=== PATIENT | female | born 1935 | race Caucasian/White ===

== ENCOUNTER 2022-02-22 09:34 | Inpatient (IN) | payer MEDICARE, BC ==
[~2022-02-22] VITALS: Ht 162.6 cm; Wt 54.5 kg
[2022-02-22] VITALS (10 sets, daily range): BP systolic 102–118; BP diastolic 48–61
[~2022-02-22 09:34] MED LIST: ALBU8HFA PO; AMLO10TA13 PO; HYDR25TA4 PO; IRBE150T51 PO; LEVO112T5 PO; METO-395 PO; VIT1CAPS46 PO
[2022-02-22 10:02] LABS: BASOPHILS # (AUTO) 0.1 X10'3 (0-0.2); BASOPHILS % (AUTO) 1.3 % (0-1); EOSINOPHILS # (AUTO) 0.1 X10'3 (0-0.9); EOSINOPHILS % (AUTO) 0.7 % (0-6); HEMATOCRIT 31.6 % (35.0-45.0); HEMOGLOBIN 10.2 g/dl (12.0-16.0); LYMPHOCYTES # (AUTO) 2.8 X10'3 (1.1-4.8); MEAN CORPUSCULAR HEMOGLOBIN 28.7 PG (27.0-31.0); MEAN CORPUSCULAR HGB CONC 32.4 g/dL (33.0-36.5); MEAN CORPUSCULAR VOLUME 88.5 FL (78-98); MEAN PLATELET VOLUME 7.4 FL (7.4-10.4); MONOCYTES % (AUTO) 8.9 % (2-12); NEUTROPHILS # (AUTO) 6.9 X10'3 (1.8-7.7); NEUTROPHILS % (AUTO) 63.1 % (42-75); PLATELET COUNT 504 X10'3 (140-440); RED BLOOD COUNT 3.57 X10'6 (4.20-5.60); RED CELL DISTRIBUTION WIDTH 14.8 % (11.5-14.5); WHITE BLOOD COUNT 10.9 X10'3 (4.5-11.0)
[2022-02-22 10:26] LABS: ABG BASE EXCESS -0.1 mmol/L (-2.0-2.0); ABG HCO3 33.1 mmol/L (22.0-26.0); ABG PCO2 (T) 114.8 mmHg (32.0-45.0); ALLEN'S TEST POSITIVE; FCOHb 0.3 % (0.0-3.9); FLOW 12 L/min; FMetHb 0.5 % (0.0-1.5); FO2Hb 98.2 % (94-97); PATIENT TEMPERATURE 35.4; TOTAL HEMOGLOBIN 11.3 G/dl (12.0-16.0)
[2022-02-22] MEDS: LIDOcaine 2% 10ml TOPICAL JELLY (Urojet) TP ONE ×2 (10:29→10:30)
[2022-02-22 10:34] LABS: POTASSIUM 4.7 MMOL/L (3.5-5.1)
--- NOTE | 2022-02-22 10:38 | NUR ---
dr pulliam and rt at bedside .pt needs bipap .md aware of pt vitals ,pt needs a sitter as pt is uncousiousness and require bipap.
[2022-02-22 10:45] LABS: ALANINE AMINOTRANSFERASE 16 U/L (12-78); ALBUMIN 3.1 G/DL (3.4-5.0); ALBUMIN/GLOBULIN RATIO 0.8 (1.1-1.5); ALKALINE PHOSPHATASE 66 IU/L (46-116); ANION GAP 8 (8-16); ASPARTATE AMINO TRANSFERASE 21 U/L (10-37); BILIRUBIN,TOTAL 0.3 MG/DL (0.1-1.0); BLOOD UREA NITROGEN 47 MG/DL (7-18); BUN/CREATININE RATIO 17.5 (6.6-38.0); CALCIUM 8.1 MG/DL (8.5-10.1); CHLORIDE 100 MMOL/L (99-107); CREATININE 2.68 MG/DL (0.40-0.90); GLUCOSE 248 MG/DL (70-104); MAGNESIUM 2.5 MG/DL (1.5-2.4); SODIUM 143 MMOL/L (135-145); TOTAL CARBON DIOXIDE 35.4 MMOL/L (24-32); TOTAL PROTEIN 7.1 G/DL (6.4-8.2); eGFR 17 ML/MIN
[2022-02-22 10:54] LABS: UA COLLECTION TYPE FOLEY CATH
[2022-02-22 10:55] LABS: CLARITY,URINE CLEAR (Clear); COLOR,URINE YELLOW (Yellow); GLUCOSE, URINE NEGATIVE (Neg); KETONES,URINE NEGATIVE (Neg); LEUKOCYTE ESTERASE ,URINE NEGATIVE (Neg); NITRITES, URINE NEGATIVE (Neg); OCCULT BLOOD,URINE NEGATIVE (Neg); PROTEIN,URINE NEGATIVE (Neg); UROBILINOGEN,URINE 0.2 E.U/dL (0.2-1.0)
--- NOTE | 2022-02-22 10:57 | NUR ---
rt and woodwork teacher at bedside.
[2022-02-22] MEDS ORDERED: heparin 25,000 UNIT/250ml bag 250 ML IV SCH (11:05)
[2022-02-22] MEDS ORDERED: heparin 10,000 units/1 ML INJ IV PRN (11:05)
[2022-02-22] MEDS ORDERED: heparin 10,000 units/1 ML INJ IV ONE (11:05)
--- NOTE | 2022-02-22 11:06 | NUR ---
Spoke with Dr. Vega regarding patients decreasing blood pressure of 84/41 mmHg RA, Dr. Vega stated to place verbal order for 1000 mL NS bolus once now.
[2022-02-22] MEDS ORDERED: normal saline 1000ml 1,000 ML IVB ONE (11:10)
[2022-02-22 11:11] LABS: ABG BASE EXCESS 3.4 mmol/L (-2.0-2.0); ABG PCO2 (T) 74.5 mmHg (32.0-45.0); ALLEN'S TEST POSITIVE; FCOHb 0.4 % (0.0-3.9); FMetHb 0.1 % (0.0-1.5); FO2Hb 91.5 % (94-97); PATIENT TEMPERATURE 34.3; RESPIRATORY RATE 8 b/min; TIDAL VOLUME 551 mL; TOTAL HEMOGLOBIN 10.4 G/dl (12.0-16.0)
--- NOTE | 2022-02-22 11:15 | NUR ---
CALLED PHARMACY TWICE TO VERIFY THE HEPARIN INFUSION DRIP.
--- NOTE | 2022-02-22 11:27 | NUR ---
DR CALLAHAN AWARE OF PENDING PTT HEPARIN BOLUS WAS ADMIN ,NOT STARTED THE DRIP PTT IS PENDING.
[2022-02-22 11:31] LABS: APTT 29 SECONDS (22-32)
--- NOTE | 2022-02-22 11:42 | NUR ---
HEAD LOADER AT BEDSIDE ALONG WITH DAUGHTER.
--- NOTE | 2022-02-22 11:43 | NUR ---
RE BLUE AT BEDSIDE.
--- NOTE | 2022-02-22 11:46 | NUR ---
NOTIFIED DR CALLAHAN THAT PT BP IS STILL LOW 81/40 mmHg AFTER 1L OF BOLUS IV FLUID .NO NEW ORDERS.ALSO CLARIFIED TO START THE ABX RIGHT NOW INSTEAD OF GUERDA ORDER FOR 1999. PER MD START THE IV ABX.
[2022-02-22] MEDS ORDERED: vancomycin inj. 750 MG in normal saline 250ml IV soln 250 ML IV ONE (12:36)
[2022-02-22] MEDS ORDERED: piperacillin/tazo 3.375gm/50ml 50 ML IV ONE ×2 (12:37→20:00)
[2022-02-22] MEDS ORDERED: magnesium hydroxide 30ml (MOM) UD suspension PO PRN (12:50)
[2022-02-22] MEDS ORDERED: morphine 2 MG/ML inj. syringe IV PRN (12:50)
[2022-02-22] MEDS ORDERED: acetaminophen 325mg tablet PO PRN ×2 (12:50)
[2022-02-22] MEDS ORDERED: POTASSIUM BICARB 20meq eff tab 20 MEQ TABLET.EFF PO PRN (12:50)
[2022-02-22] MEDS ORDERED: morphine 4 MG/ML inj SYRINge IV PRN (12:50)
[2022-02-22] MEDS ORDERED: normal saline 1000ml 1,000 ML IV SCH (12:50)
[2022-02-22] MEDS ORDERED: ondansetron/PF 4mg/2ml inj IV PRN (12:50)
--- NOTE | 2022-02-22 14:20 | NUR ---
Pt temp upon arrival to unit is 35.0 Celcius. Meli hugger applied.
--- NOTE | 2022-02-22 14:20 | NUR ---
Patient arrived via gurney in room CICU 2012. I have received report from JENNIFER Elise RN and had the opportunity to ask questions and assume patient care.
--- NOTE | 2022-02-22 18:20 | NUR ---
Patient in room CICU 2013. I have received report from Annie RN and Krystian RN and had the opportunity to ask questions and assume patient care.
--- NOTE | 2022-02-22 18:21 | NUR ---
Problems reprioritized. Patient report given, questions answered & plan of care reviewed with SOPHIE Ponce.
--- NOTE | 2022-02-22 18:44 | NUR ---
Patient is awake and oriented to person, place. She relates that last she knew she was unable to finish her dinner at [facility], and then had request a "sleeping pill" because she relates she was unable to sleep for over a week. She was unable to tolerate the BiPap mask being off for oral care. Patient speaking appropriately at this time. SpO2 decreased to 83% with respiratory rate in the high 20's. Bi Pap mask placed back on patient with increased in oxygen saturation slowly to 100%. Patient educated on purpose of mask and why it needed to remain in place.
--- NOTE | 2022-02-22 21:30 | NUR ---
Patient with increased work of breathing, respiratory rate 36, SpO2 92%. Patient seated in high fowlers with two pillows in place behind back. Patient agreed to place Bi Pap back on. Patient with slight decreased in respiratory rate to high 20's, increased in oxygen saturation to 98%.
--- NOTE | 2022-02-22 22:00 | NUR ---
Patient c/o ear pain with BiPap mask. straps adjusted without relief. Patient becoming anxious. Mask removed and patient placed back on nasal cannula at 2 lpm. Respiratory rate 33, oxygen saturation 99%.
--- NOTE | 2022-02-22 23:00 | NUR ---
Patients son Scott called to check on his mother. He is currently in [place] waiting on connecting flight to [place]. He was able to speak to his mother. Phone number: Country code; [phone]
--- NOTE | 2022-02-22 23:50 | NUR ---
Patient fatigued and states "I'm tired" Patient relates that she has not slept well for weeks. Patient appears to be dozing on and off. Patient awakens easily from sleep and is appropriate with her mentation. Patient states "its hard to breathe". No change in lung sounds noted. course bilateral bases. clear to the upper lobes bilaterally. Patient placed back on Bi PAP mask at 45 % FiO2.
[2022-02-23] VITALS (25 sets, daily range): BP systolic 100–127; BP diastolic 39–61
--- NOTE | 2022-02-23 | NUR ---
Dr. Wilson called, voicemail left for return call. Re: Decreased urine output.
--- NOTE | 2022-02-23 00:30 | NUR ---
Dr. Wilson phone call: Re decreased urine output, patients anxiety and inability to wear BiPap mask. Lab results reviewed, current vital signs and patients status reviewed with MD. Verbal telephone order for: 1. Hold IV fluids for now 2. Consult Dr. Raphael in nephrology 3. 12.5 mg Benadryl IV once now 4. 60 mg Lasix IV once now.
[2022-02-23] MEDS ORDERED: diphenhydrAMINE 50 mg/ml inj IM ONE (00:35)
[2022-02-23] MEDS ORDERED: furosemide 40mg/4ml inj IV ONE (00:35)
[2022-02-23] MEDS ORDERED: diphenhydrAMINE 50 mg/ml inj IV ONE (01:25)
[2022-02-23] MEDS: piperacillin/tazo 3.375gm/50ml 50 ML IV SCH ×2 (01:40→13:05)
[2022-02-23 02:35] LABS: BASOPHILS % (AUTO) 0.1 % (0-1); EOSINOPHILS % (AUTO) 0 % (0-6); HEMATOCRIT 28.9 % (35.0-45.0); HEMOGLOBIN 9.4 g/dl (12.0-16.0); LYMPHOCYTES # (AUTO) 0.2 X10'3 (1.1-4.8); LYMPHOCYTES % (AUTO) 1.6 % (21-51); MEAN CORPUSCULAR HEMOGLOBIN 28.6 PG (27.0-31.0); MEAN CORPUSCULAR HGB CONC 32.7 g/dL (33.0-36.5); MEAN CORPUSCULAR VOLUME 87.6 FL (78-98); MONOCYTES # (AUTO) 0.8 X10'3 (0-0.9); MONOCYTES % (AUTO) 6.5 % (2-12); NEUTROPHILS # (AUTO) 11.3 X10'3 (1.8-7.7); NEUTROPHILS % (AUTO) 91.8 % (42-75); PLATELET COUNT 354 X10'3 (140-440); RED CELL DISTRIBUTION WIDTH 14.4 % (11.5-14.5); WHITE BLOOD COUNT 12.3 X10'3 (4.5-11.0)
[2022-02-23] MEDS: VANCOMYCIN LEVEL IV SCH (02:37)
[2022-02-23 02:47] LABS: ALANINE AMINOTRANSFERASE 17 U/L (12-78); ALBUMIN 2.8 G/DL (3.4-5.0); ALBUMIN/GLOBULIN RATIO 0.8 (1.1-1.5); ALKALINE PHOSPHATASE 66 IU/L (46-116); ANION GAP 7 (8-16); ASPARTATE AMINO TRANSFERASE 19 U/L (10-37); BILIRUBIN,TOTAL 0.3 MG/DL (0.1-1.0); BLOOD UREA NITROGEN 51 MG/DL (7-18); BUN/CREATININE RATIO 19.8 (6.6-38.0); CALCIUM 7.6 MG/DL (8.5-10.1); CHLORIDE 103 MMOL/L (99-107); CREATININE 2.58 MG/DL (0.40-0.90); GLUCOSE 129 MG/DL (70-104); MAGNESIUM 2.1 MG/DL (1.5-2.4); POTASSIUM 4.7 MMOL/L (3.5-5.1); SODIUM 144 MMOL/L (135-145); TOTAL CARBON DIOXIDE 34.4 MMOL/L (24-32); TOTAL PROTEIN 6.5 G/DL (6.4-8.2); VANCOMYCIN,RANDOM 8.2 UG/ML; eGFR 18 ML/MIN
--- NOTE | 2022-02-23 04:05 | NUR ---
Patient appeared to have slept from 0030 to 0400. Patient was able to wear BiPAP mask while sleeping. Patient states " I felt like I slept!" BiPap mask removed and oral care, chapstick and ice chips provided for patient. Patient placed on nasal cannula at 3 lpm during break from BiPAP mask. Patients cardiac rhythm is back in atrial fibrillation rate 105-120, BP MAP >70.
--- NOTE | 2022-02-23 04:36 | NUR ---
Bi PAP mask placed back on patient secondary to increased respiratory rate.
--- NOTE | 2022-02-23 06:26 | NUR ---
Problems reprioritized. Patient report given, questions answered & plan of care reviewed with SOPHIE Horton.
[2022-02-23] MEDS ORDERED: APIX2.5T PO (07:58)
[2022-02-23] MEDS: K and/or MAG REPLACEMENT MC SCH (08:00)
[2022-02-23] MEDS ORDERED: vancomycin/NS 1 GM ADD-VANTAGE 250 ML IV PRN (08:00)
[2022-02-23] MEDS ORDERED: albuterol 2.5 MG/3 ML nebule NEB PRN (09:10)
[2022-02-23 09:49] LABS: ABG OXYGEN SATURATION 94.8 % (94-97); ABG PCO2 (T) 61.6 mmHg (32.0-45.0); ABG PO2 (T) 77.6 mmHg (75.0-100.0); ALLEN'S TEST POSITIVE; FCOHb 0.3 % (0.0-3.9); FLOW 2 L/min; FMetHb 0.3 % (0.0-1.5); FO2Hb 94.2 % (94-97); PATIENT TEMPERATURE 37.3; TOTAL HEMOGLOBIN 10.5 G/dl (12.0-16.0)
[2022-02-23] MEDS ORDERED: metoprolol succinate 25mg (24-HOUR) SR. Tablet PO ONE (10:25)
[2022-02-23] MEDS ORDERED: vancomycin/NS 1 GM ADD-VANTAGE 250 ML IV ONE (10:30)
--- NOTE | 2022-02-23 10:56 | NUR ---
Noted pt BMI 20.6 low given age. Pt stable wt hx recent admits and reports no wt loss per RN Malnutrition Screen per EMR; likely maintains stable underweight status given age. Pt advanced to Na-restricted diet pending CORPORATE CLAIMS EXAMINER BSS given recent prior admit on EC7 per CORPORATE CLAIMS EXAMINER. Will monitor for nutrition intervention needs this admit. Addendum: 02/23/22 at [address] Amended: Links added.
--- NOTE | 2022-02-23 14:55 | NUR ---
Patient report given to Julia Rosa RN with all questions answered.
--- NOTE | 2022-02-23 17:42 | NUR ---
Pt tx to 3015b reported off to Diane
--- NOTE | 2022-02-23 17:52 | NUR ---
Received patient from CICU patient appears comfortable orientated to room. No c/o pain.VSS
--- NOTE | 2022-02-23 18:40 | NUR ---
Bandaide to left upper flank CDI from thoracentesis. per report 700mls removed. patient appears alert and orientated. Report given to Concha BARRIOS
--- NOTE | 2022-02-23 18:56 | NUR ---
Patient in room U 3018O. I have received report from Kirsten BARRIOS and had the opportunity to ask questions and assume patient care. Pt is sitting up in bed. no s/s of distress, no c/o pain. BLL, call light within reach, frequently used items in reach, frequent rounding. Will continue to monitior.
[2022-02-23] MEDS ORDERED: non-formulary drug (Vit C/E/Zn/Coppr/Lutein/Zeaxan (Preservision Areds 2 Softgel) 1 CAP) PO SCH (20:00)
[2022-02-23] MEDS: losartan 50mg tablet PO SCH (21:26)
[2022-02-24 02:00] VITALS: BP 129/62
--- NOTE | 2022-02-24 02:16 | NUR ---
Received Pts Zoltan from Pharmacy @0210.
[2022-02-24] MEDS: piperacillin/tazo 3.375gm/50ml 50 ML IV SCH ×2 (02:19→13:23)
[2022-02-24 06:00] VITALS: BP 113/52
--- NOTE | 2022-02-24 06:19 | NUR ---
Problems reprioritized. Patient report given, questions answered & plan of care reviewed with Agustín BARRIOS.
[2022-02-24] MEDS: VANCOMYCIN LEVEL IV SCH (06:51)
[2022-02-24 06:56] LABS: BASOPHILS % (AUTO) 0.3 % (0-1); EOSINOPHILS % (AUTO) 0.1 % (0-6); HEMATOCRIT 27.9 % (35.0-45.0); HEMOGLOBIN 9.1 g/dl (12.0-16.0); LYMPHOCYTES # (AUTO) 0.7 X10'3 (1.1-4.8); LYMPHOCYTES % (AUTO) 6.4 % (21-51); MEAN CORPUSCULAR HGB CONC 32.8 g/dL (33.0-36.5); MEAN CORPUSCULAR VOLUME 85.5 FL (78-98); MEAN PLATELET VOLUME 7.6 FL (7.4-10.4); MONOCYTES # (AUTO) 1.1 X10'3 (0-0.9); MONOCYTES % (AUTO) 10.9 % (2-12); NEUTROPHILS # (AUTO) 8.3 X10'3 (1.8-7.7); NEUTROPHILS % (AUTO) 82.3 % (42-75); PLATELET COUNT 299 X10'3 (140-440); RED BLOOD COUNT 3.26 X10'6 (4.20-5.60); RED CELL DISTRIBUTION WIDTH 14.3 % (11.5-14.5); WHITE BLOOD COUNT 10.1 X10'3 (4.5-11.0)
[2022-02-24 07:22] LABS: ALANINE AMINOTRANSFERASE 16 U/L (12-78); ALBUMIN 2.6 G/DL (3.4-5.0); ALBUMIN/GLOBULIN RATIO 0.7 (1.1-1.5); ALKALINE PHOSPHATASE 57 IU/L (46-116); ANION GAP 3 (8-16); ASPARTATE AMINO TRANSFERASE 20 U/L (10-37); BILIRUBIN,TOTAL 0.5 MG/DL (0.1-1.0); BLOOD UREA NITROGEN 52 MG/DL (7-18); BUN/CREATININE RATIO 19.2 (6.6-38.0); CALCIUM 7.8 MG/DL (8.5-10.1); CHLORIDE 103 MMOL/L (99-107); CREATININE 2.71 MG/DL (0.40-0.90); GLUCOSE 113 MG/DL (70-104); MAGNESIUM 2.1 MG/DL (1.5-2.4); POTASSIUM 3.5 MMOL/L (3.5-5.1); SODIUM 142 MMOL/L (135-145); TOTAL CARBON DIOXIDE 35.8 MMOL/L (24-32); TOTAL PROTEIN 6.2 G/DL (6.4-8.2); VANCOMYCIN,RANDOM 17.3 UG/ML; eGFR 17 ML/MIN
[2022-02-24] MEDS: K and/or MAG REPLACEMENT MC SCH (07:38)
[2022-02-24] MEDS: metoprolol succinate 25mg (24-HOUR) SR. Tablet PO SCH (07:39)
[2022-02-24] MEDS: levoTHYROXINE 112mcg tablet PO SCH (07:39)
[2022-02-24] MEDS ORDERED: amLODIPine 5mg tablet PO SCH (08:00)
[2022-02-24 15:00] VITALS: BP 107/46
[2022-02-24 18:30] VITALS: BP 97/50
--- NOTE | 2022-02-24 18:31 | NUR ---
Patient in room PCU 3012. I have received report from Agustín BARRIOS and had the opportunity to ask questions and assume patient care.
[2022-02-24] MEDS: losartan 50mg tablet PO SCH (21:15)
[2022-02-24 22:00] VITALS: BP 114/56
[2022-02-25] MEDS: piperacillin/tazo 3.375gm/50ml 50 ML IV SCH ×2 (01:24→13:00)
[2022-02-25 02:01] VITALS: BP 117/57
[2022-02-25] MEDS: VANCOMYCIN LEVEL IV SCH (03:00)
[2022-02-25 06:00] VITALS: BP 110/55
--- NOTE | 2022-02-25 06:18 | NUR ---
Problems reprioritized. Patient report given, questions answered & plan of care reviewed with Agustín BARRIOS.
[2022-02-25 07:07] LABS: BASOPHILS % (AUTO) 0.5 % (0-1); EOSINOPHILS # (AUTO) 0.1 X10'3 (0-0.9); EOSINOPHILS % (AUTO) 0.6 % (0-6); HEMATOCRIT 27.8 % (35.0-45.0); HEMOGLOBIN 9.2 g/dl (12.0-16.0); LYMPHOCYTES # (AUTO) 0.9 X10'3 (1.1-4.8); LYMPHOCYTES % (AUTO) 10.7 % (21-51); MEAN CORPUSCULAR HEMOGLOBIN 28.7 PG (27.0-31.0); MEAN CORPUSCULAR HGB CONC 32.9 g/dL (33.0-36.5); MEAN CORPUSCULAR VOLUME 87.1 FL (78-98); MEAN PLATELET VOLUME 7.7 FL (7.4-10.4); MONOCYTES # (AUTO) 1.2 X10'3 (0-0.9); MONOCYTES % (AUTO) 13.5 % (2-12); NEUTROPHILS # (AUTO) 6.6 X10'3 (1.8-7.7); NEUTROPHILS % (AUTO) 74.7 % (42-75); PLATELET COUNT 307 X10'3 (140-440); RED BLOOD COUNT 3.19 X10'6 (4.20-5.60); RED CELL DISTRIBUTION WIDTH 14.3 % (11.5-14.5); WHITE BLOOD COUNT 8.8 X10'3 (4.5-11.0)
[2022-02-25 07:14] LABS: ALANINE AMINOTRANSFERASE 15 U/L (12-78); ALBUMIN 2.6 G/DL (3.4-5.0); ALBUMIN/GLOBULIN RATIO 0.7 (1.1-1.5); ALKALINE PHOSPHATASE 54 IU/L (46-116); ANION GAP 2 (8-16); ASPARTATE AMINO TRANSFERASE 17 U/L (10-37); BILIRUBIN,TOTAL 0.4 MG/DL (0.1-1.0); BLOOD UREA NITROGEN 49 MG/DL (7-18); BUN/CREATININE RATIO 19.4 (6.6-38.0); CALCIUM 7.9 MG/DL (8.5-10.1); CHLORIDE 104 MMOL/L (99-107); CREATININE 2.52 MG/DL (0.40-0.90); GLUCOSE 117 MG/DL (70-104); MAGNESIUM 2.3 MG/DL (1.5-2.4); POTASSIUM 3.3 MMOL/L (3.5-5.1); SODIUM 144 MMOL/L (135-145); TOTAL CARBON DIOXIDE 38.2 MMOL/L (24-32); TOTAL PROTEIN 6.2 G/DL (6.4-8.2); VANCOMYCIN,RANDOM 12.8 UG/ML; eGFR 18 ML/MIN
[2022-02-25] MEDS: metoprolol succinate 25mg (24-HOUR) SR. Tablet PO SCH (07:26)
[2022-02-25] MEDS: levoTHYROXINE 112mcg tablet PO SCH (07:26)
[2022-02-25] MEDS: K and/or MAG REPLACEMENT MC SCH (08:00)
[2022-02-25 08:01] LABS: ABG BASE EXCESS 8.3 mmol/L (-2.0-2.0); ABG HCO3 34.2 mmol/L (22.0-26.0); ABG OXYGEN SATURATION 94.4 % (94-97); ABG PCO2 (T) 54.4 mmHg (32.0-45.0); ABG PO2 (T) 76.1 mmHg (75.0-100.0); ALLEN'S TEST POSITIVE; FCOHb 0.3 % (0.0-3.9); FMetHb 0.2 % (0.0-1.5); FO2Hb 93.9 % (94-97); TOTAL HEMOGLOBIN 10.3 G/dl (12.0-16.0)
[2022-02-25 11:00] VITALS: BP_SYST 112; BP_SYST 145; BP_DIAS 58; BP_DIAS 65
[2022-02-25] MEDS ORDERED: vancomycin/NS 1 GM ADD-VANTAGE 250 ML IV ONE (12:30)
[2022-02-25 15:00] VITALS: BP 108/46
--- NOTE | 2022-02-25 15:52 | NUR ---
Page Sent promotional table spacer PAGER ID: [phone] MESSAGE: KENNY OLSON RM [id number] SON AT BEDSIDE WOULD LIKE CT CHEST RESULTS THANK YOU, FALLON BARRIOS
[2022-02-25 18:00] VITALS: BP 128/54
[2022-02-25] MEDS: POTASSIUM BICARB 20meq eff tab 20 MEQ TABLET.EFF PO PRN (21:03)
[2022-02-25] MEDS: losartan 50mg tablet PO SCH (21:05)
[2022-02-25 22:00] VITALS: BP 144/41
[2022-02-26] VITALS (7 sets, daily range): BP systolic 111–157; BP diastolic 54–85
[2022-02-26] MEDS: piperacillin/tazo 3.375gm/50ml 50 ML IV SCH ×2 (01:44→13:48)
[2022-02-26] MEDS: POTASSIUM BICARB 20meq eff tab 20 MEQ TABLET.EFF PO PRN (01:53)
[2022-02-26] MEDS: VANCOMYCIN LEVEL IV SCH (03:00)
--- NOTE | 2022-02-26 06:19 | NUR ---
Problems reprioritized. Patient report given, questions answered & plan of care reviewed with maryanne BARRIOS.
[2022-02-26 08:08] LABS: ALANINE AMINOTRANSFERASE 13 U/L (12-78); ALBUMIN 2.8 G/DL (3.4-5.0); ALBUMIN/GLOBULIN RATIO 0.7 (1.1-1.5); ALKALINE PHOSPHATASE 60 IU/L (46-116); ANION GAP 5 (8-16); ASPARTATE AMINO TRANSFERASE 19 U/L (10-37); BILIRUBIN,TOTAL 0.5 MG/DL (0.1-1.0); BLOOD UREA NITROGEN 45 MG/DL (7-18); BUN/CREATININE RATIO 19.4 (6.6-38.0); CALCIUM 8.3 MG/DL (8.5-10.1); CHLORIDE 102 MMOL/L (99-107); CREATININE 2.32 MG/DL (0.40-0.90); GLUCOSE 112 MG/DL (70-104); MAGNESIUM 2.4 MG/DL (1.5-2.4); POTASSIUM 4.2 MMOL/L (3.5-5.1); SODIUM 143 MMOL/L (135-145); TOTAL PROTEIN 6.7 G/DL (6.4-8.2); VANCOMYCIN,RANDOM 20.6 UG/ML; eGFR 20 ML/MIN
[2022-02-26 08:10] LABS: BASOPHILS % (AUTO) 0.4 % (0-1); EOSINOPHILS % (AUTO) 0.4 % (0-6); HEMATOCRIT 28.7 % (35.0-45.0); HEMOGLOBIN 9.2 g/dl (12.0-16.0); LYMPHOCYTES # (AUTO) 1.1 X10'3 (1.1-4.8); LYMPHOCYTES % (AUTO) 11.8 % (21-51); MEAN CORPUSCULAR HEMOGLOBIN 27.9 PG (27.0-31.0); MEAN CORPUSCULAR HGB CONC 32.1 g/dL (33.0-36.5); MEAN CORPUSCULAR VOLUME 86.7 FL (78-98); MEAN PLATELET VOLUME 7.8 FL (7.4-10.4); MONOCYTES # (AUTO) 1.2 X10'3 (0-0.9); MONOCYTES % (AUTO) 12.3 % (2-12); NEUTROPHILS # (AUTO) 7.3 X10'3 (1.8-7.7); NEUTROPHILS % (AUTO) 75.1 % (42-75); PLATELET COUNT 318 X10'3 (140-440); RED BLOOD COUNT 3.32 X10'6 (4.20-5.60); RED CELL DISTRIBUTION WIDTH 14.5 % (11.5-14.5); WHITE BLOOD COUNT 9.8 X10'3 (4.5-11.0)
[2022-02-26] MEDS: levoTHYROXINE 112mcg tablet PO SCH (08:41)
[2022-02-26] MEDS: metoprolol succinate 25mg (24-HOUR) SR. Tablet PO SCH (08:41)
--- NOTE | 2022-02-26 09:22 | NUR ---
Initial: Pt admitted w/ acute respiratory failure, L pleural effusion, possible PNA, and KAM/CKD per EMR. Currently on MM5/2gNa diet per CEMETERY MANAGER/MD recs, w/ avg intake 47% x 8 meals partially meeting needs. Recommend Changing to Vegetarian diet as that is pt's preference. Previous food preferences have also been d/w dietary. LBM 02/24. Will continue to monitor. Recs: 1. Continue MM5 per CEMETERY MANAGER recs, change to Vegetarian diet per pt preference 2. [place] food preferences: yogurt BIDBD, chocolate shake and toast WB, cottage cheese WL, prefers sandwiches and salads; no eggs to eat, milk to drink, or bananas; pt dislikes Ensure 3. Consider supplemental NGTF given inadequate PO intake throughout previous admit if within POC 4. routine bowel care 5. Weekly wts Addendum: 02/26/22 at [address] Amended: Links added.
--- NOTE | 2022-02-26 18:42 | NUR ---
Report given to Vik BARRIOS, patient ate dinner, resting comfortably at this time.
[2022-02-26] MEDS: losartan 50mg tablet PO SCH (21:00)
[2022-02-27] MEDS: piperacillin/tazo 3.375gm/50ml 50 ML IV SCH ×2 (00:45→13:32)
[2022-02-27 02:00] VITALS: BP 132/60
[2022-02-27] MEDS: VANCOMYCIN LEVEL IV SCH (03:00)
--- NOTE | 2022-02-27 06:32 | NUR ---
Patient in room PCU 3012. I have received report from Vik BARRIOS and had the opportunity to ask questions and assume patient care.
--- NOTE | 2022-02-27 06:49 | NUR ---
Problems reprioritized. Patient report given, questions answered & plan of care reviewed with EMILIANO. Addendum: 02/27/22 at 0649 by Demetris Carlson RN Amended: Links added.
[2022-02-27 07:00] VITALS: BP 128/56
[2022-02-27 07:20] LABS: BASOPHILS # (AUTO) 0.1 X10'3 (0-0.2); BASOPHILS % (AUTO) 0.6 % (0-1); EOSINOPHILS % (AUTO) 0.1 % (0-6); HEMATOCRIT 30.6 % (35.0-45.0); LYMPHOCYTES # (AUTO) 0.8 X10'3 (1.1-4.8); LYMPHOCYTES % (AUTO) 8.2 % (21-51); MEAN CORPUSCULAR HEMOGLOBIN 28.8 PG (27.0-31.0); MEAN CORPUSCULAR HGB CONC 32.7 g/dL (33.0-36.5); MEAN CORPUSCULAR VOLUME 88.2 FL (78-98); MEAN PLATELET VOLUME 7.5 FL (7.4-10.4); MONOCYTES # (AUTO) 1.2 X10'3 (0-0.9); MONOCYTES % (AUTO) 11.8 % (2-12); NEUTROPHILS # (AUTO) 7.8 X10'3 (1.8-7.7); NEUTROPHILS % (AUTO) 79.3 % (42-75); PLATELET COUNT 335 X10'3 (140-440); RED BLOOD COUNT 3.47 X10'6 (4.20-5.60); RED CELL DISTRIBUTION WIDTH 14.6 % (11.5-14.5); WHITE BLOOD COUNT 9.9 X10'3 (4.5-11.0)
[2022-02-27 07:41] LABS: ALANINE AMINOTRANSFERASE 15 U/L (12-78); ALBUMIN/GLOBULIN RATIO 0.8 (1.1-1.5); ALKALINE PHOSPHATASE 68 IU/L (46-116); ANION GAP 2 (8-16); ASPARTATE AMINO TRANSFERASE 21 U/L (10-37); BILIRUBIN,TOTAL 0.5 MG/DL (0.1-1.0); BLOOD UREA NITROGEN 43 MG/DL (7-18); BUN/CREATININE RATIO 19.4 (6.6-38.0); CALCIUM 8.7 MG/DL (8.5-10.1); CHLORIDE 103 MMOL/L (99-107); CREATININE 2.22 MG/DL (0.40-0.90); GLUCOSE 121 MG/DL (70-104); MAGNESIUM 2.5 MG/DL (1.5-2.4); POTASSIUM 4.2 MMOL/L (3.5-5.1); SODIUM 143 MMOL/L (135-145); VANCOMYCIN,RANDOM 16.8 UG/ML; eGFR 21 ML/MIN
[2022-02-27] MEDS: levoTHYROXINE 112mcg tablet PO SCH (08:26)
[2022-02-27] MEDS: metoprolol succinate 25mg (24-HOUR) SR. Tablet PO SCH (08:26)
[2022-02-27 11:10] VITALS: BP 126/58
--- NOTE | 2022-02-27 11:57 | NUR ---
patient appears stable up sitting in chair. To work with PT this am
[2022-02-27 15:00] VITALS: BP 109/45
[2022-02-27 18:00] VITALS: BP 124/66
--- NOTE | 2022-02-27 18:20 | NUR ---
patient very pleasant. Son Jose into see patient. Able to ambulate with PT see note. No c/o pain up sitting in chair. Is for PICC placement in am. Consent is signed in chart per Dr Zhao. Report given to gian BARRIOS
[2022-02-27] MEDS: losartan 50mg tablet PO SCH (20:17)
[2022-02-27 22:00] VITALS: BP 116/56
[2022-02-28] MEDS: piperacillin/tazo 3.375gm/50ml 50 ML IV SCH ×2 (00:27→13:43)
[2022-02-28] MEDS: VANCOMYCIN LEVEL IV SCH (03:00)
[2022-02-28 06:00] VITALS: BP 138/71
--- NOTE | 2022-02-28 06:20 | NUR ---
Problems reprioritized. Patient report given, questions answered & plan of care reviewed with XUAN. Addendum: 02/28/22 at 0620 by Demetris Carlson RN Amended: Links added.
--- NOTE | 2022-02-28 06:28 | NUR ---
Problems reprioritized. Patient report given, questions answered & plan of care reviewed with XUAN. Addendum: 02/28/22 at 0629 by Demetris Carlson RN Amended: Links added.
--- NOTE | 2022-02-28 06:29 | NUR ---
Problems reprioritized. Patient report given, questions answered & plan of care reviewed with XUAN. Addendum: 02/28/22 at 0630 by Demetris Carlson RN Amended: Links added.
[2022-02-28 08:26] LABS: ALANINE AMINOTRANSFERASE 15 U/L (12-78); ALBUMIN 2.8 G/DL (3.4-5.0); ALBUMIN/GLOBULIN RATIO 0.7 (1.1-1.5); ALKALINE PHOSPHATASE 63 IU/L (46-116); ANION GAP 3 (8-16); ASPARTATE AMINO TRANSFERASE 19 U/L (10-37); BILIRUBIN,TOTAL 0.5 MG/DL (0.1-1.0); BLOOD UREA NITROGEN 40 MG/DL (7-18); BUN/CREATININE RATIO 19.4 (6.6-38.0); CALCIUM 8.7 MG/DL (8.5-10.1); CHLORIDE 103 MMOL/L (99-107); CREATININE 2.06 MG/DL (0.40-0.90); GLUCOSE 102 MG/DL (70-104); POTASSIUM 4.4 MMOL/L (3.5-5.1); SODIUM 144 MMOL/L (135-145); TOTAL CARBON DIOXIDE 38.5 MMOL/L (24-32); TOTAL PROTEIN 6.6 G/DL (6.4-8.2); VANCOMYCIN,RANDOM 12.6 UG/ML; eGFR 23 ML/MIN
[2022-02-28] MEDS: levoTHYROXINE 112mcg tablet PO SCH (09:06)
--- NOTE | 2022-02-28 09:15 | NUR ---
Paged PICC Nurse PCU Hai BARRIOS [phone] RE: Zhanna Akins. Pt has order for PICC placement today, consent form in the chart. Possibly going to today
[2022-02-28 11:00] VITALS: BP 117/56
[2022-02-28] MEDS: metoprolol succinate 25mg (24-HOUR) SR. Tablet PO SCH (11:08)
--- NOTE | 2022-02-28 11:12 | NUR ---
Paged Dr. Barfield [facility] Hai RN ext [phone] RE: Zhanna Angela. Patient's son would like to speak to you about patient condition when you get a chance. Scott [phone]
[2022-02-28] MEDS ORDERED: AZIT500T9 PO (12:34)
--- NOTE | 2022-02-28 12:55 | NUR ---
Paged PICC nurse PCU Meredith ext [phone] RE: Zhanna Lazo. Just want to follow up the PICC insertion today. lottery office manager wants to know too
--- NOTE | 2022-02-28 13:32 | NUR ---
Per Vera, Communications Operator she spoke to Dr. Barfield today and that we do not need to do the PICC line insertion today as patient will be discharging to [facility] today on PO antibiotic.
--- NOTE | 2022-02-28 15:02 | NUR ---
Paged Dr. Barfield [facility] dimitrios RN [phone] RE: Zhanna Garcia. Patient's son here has question about the diagnosis and the reason for the antibiotic treatment. Please call him Scott- son [phone]
--- NOTE | 2022-02-28 15:20 | NUR ---
Report given to ERA Cummings at [facility]. Son was aware of the transfer to [facility] Addendum: 02/28/22 at 1522 by Hai Neil RN Patient has robe with her when she left. Peripheral IV catheter removed, tip intact.
== END 2022-02-28 15:14 | DRG 193 ==
LOC: ER 09:34 → ED HOLD 13:01 → CICU 2S 14:15 → PCU 3S 02-23 18:11
PROVIDERS: ADMIT Internal Medicine Critical Care Medicine; ATTEND Internal Medicine Critical Care Medicine
PROC: 5A09357 Assistance with Respiratory Ventilation, Less than 24 Consecutive Hours, Continuous Positive Airway Pressure (ICD-10-PCS; principal; 2022-02-22)
PROC: 02HV33Z Insertion of Infusion Device into Superior Vena Cava, Percutaneous Approach (ICD-10-PCS; 2022-02-22)
PROC: B548ZZA Ultrasonography of Superior Vena Cava, Guidance (ICD-10-PCS; 2022-02-22)
PROC: 5A09357 Assistance with Respiratory Ventilation, Less than 24 Consecutive Hours, Continuous Positive Airway Pressure (ICD-10-PCS; 2022-02-23)
PROC: 0W9B3ZX Drainage of Left Pleural Cavity, Percutaneous Approach, Diagnostic (ICD-10-PCS; 2022-02-23)
DX: J18.9 Pneumonia, unspecified organism (principal); G93.41 Metabolic encephalopathy; J96.02 Acute respiratory failure with hypercapnia; I50.33 Acute on chronic diastolic (congestive) heart failure; J96.01 Acute respiratory failure with hypoxia; N17.0 Acute kidney failure with tubular necrosis; I13.0 Hypertensive heart and chronic kidney disease with heart failure and stage 1 through stage 4 chronic kidney disease, or unspecified chronic kidney disease; J91.8 Pleural effusion in other conditions classified elsewhere; E87.4 Mixed disorder of acid-base balance; I48.20 Chronic atrial fibrillation, unspecified; I95.9 Hypotension, unspecified; D64.9 Anemia, unspecified; R68.0 Hypothermia, not associated with low environmental temperature; E89.0 Postprocedural hypothyroidism; I08.1 Rheumatic disorders of both mitral and tricuspid valves; E78.5 Hyperlipidemia, unspecified; J45.909 Unspecified asthma, uncomplicated; N18.30 Chronic kidney disease, stage 3 unspecified; Z87.01 Personal history of pneumonia (recurrent); Z79.01 Long term (current) use of anticoagulants; Z85.850 Personal history of malignant neoplasm of thyroid; Z90.710 Acquired absence of both cervix and uterus; Z87.440 Personal history of urinary (tract) infections; Z90.49 Acquired absence of other specified parts of digestive tract; Z79.899 Other long term (current) drug therapy
CPT/HCPCS: 32555; 36415; 36573; 36600; 70450; 71045; 71046; 71250; 80053; 80202; 81003; 82803; 82948; 83605; 83735; 83880; 84145; 84443; 84484; 85018; 85025; 85610; 85730; 86140; 87040; 87081; 92508; 92616; 93308; 93970; 94660; 94668; 94760; 94799; 97110; 97116; 97161; 97530; 99291; 99292; A4615; A6258; A6449; C1751; C1758; G0378; J1200; J1644; J1940; J2543; J3370; J7030; J7040; J7050

== ENCOUNTER 2022-03-02 13:14 | Inpatient (IN) | payer MEDICARE, BC ==
[~2022-03-02] VITALS: Ht 154.9 cm; Wt 68.5 kg
[~2022-03-02 13:14] MED LIST changes: +APIX2.5T PO; +AZIT500T9 PO
[2022-03-02] MEDS ORDERED: diltiazem 5mg/ml 5ml inj. IV ONE (14:15)
[2022-03-02] MEDS ORDERED: furosemide 40mg/4ml inj IV ONE (14:15)
[2022-03-02] MEDS ORDERED: LIDOcaine 2% 10ml TOPICAL JELLY (Urojet) TP ONE (14:15)
--- NOTE | 2022-03-02 14:35 | NUR ---
CALLED PHARMACY TO BRING THE CARDIZEM ITS NOT STOCKED IN OUR OMNICELL.
[2022-03-02 14:39] LABS: BASOPHILS # (AUTO) 0.1 X10'3 (0-0.2); BASOPHILS % (AUTO) 0.7 % (0-1); EOSINOPHILS % (AUTO) 0.4 % (0-6); HEMATOCRIT 29.4 % (35.0-45.0); HEMOGLOBIN 9.9 g/dl (12.0-16.0); LYMPHOCYTES # (AUTO) 0.7 X10'3 (1.1-4.8); LYMPHOCYTES % (AUTO) 7.9 % (21-51); MEAN CORPUSCULAR HGB CONC 33.6 g/dL (33.0-36.5); MEAN CORPUSCULAR VOLUME 86.6 FL (78-98); MONOCYTES # (AUTO) 1.1 X10'3 (0-0.9); MONOCYTES % (AUTO) 12.9 % (2-12); NEUTROPHILS # (AUTO) 6.5 X10'3 (1.8-7.7); NEUTROPHILS % (AUTO) 78.1 % (42-75); PLATELET COUNT 361 X10'3 (140-440); RED CELL DISTRIBUTION WIDTH 14.6 % (11.5-14.5); WHITE BLOOD COUNT 8.4 X10'3 (4.5-11.0)
[2022-03-02] MEDS ORDERED: metoprolol tartrate 1mg/ml inj IV ONE (15:10)
--- NOTE | 2022-03-02 15:11 | NUR ---
NOTIFIED MD REGARDING PT HE WHICH IS STILL 126 AFTER GIVING HER 10 MG OF CARDIZEM, PER MD HE WILL ORDER LOPRESSOR .
--- NOTE | 2022-03-02 15:29 | NUR ---
DR ACOSTA AT BEDSIDE ,GIVEN LOPRESSOR AND HR IS 123 AFIB RTHYM.
[2022-03-02] MEDS ORDERED: magnesium 2GM in 50ml NS 50 ML IV PRN (15:50)
[2022-03-02] MEDS ORDERED: potassium CL 10mEq/100ml bag 100 ML IV PRN (15:50)
[2022-03-02] MEDS ORDERED: HYDROcodone/acetaminophen 5mg/325mg tablet PO PRN (15:50)
[2022-03-02] MEDS ORDERED: magnesium 4gm in 100ml NS 100 ML IV PRN (15:50)
[2022-03-02] MEDS ORDERED: acetaminophen 325mg tablet PO PRN ×2 (15:50)
[2022-03-02] MEDS ORDERED: POTASSIUM BICARB 20meq eff tab 20 MEQ TABLET.EFF PO PRN ×2 (15:50)
[2022-03-02] MEDS ORDERED: HYDROcodone/acetaminophen 10/325mg tab PO PRN (15:50)
[2022-03-02] MEDS ORDERED: docusate sod 100mg capsule PO PRN (15:50)
[2022-03-02] MEDS ORDERED: mag hydrox/Alum hydrox/simeth 30ml oral suspension PO PRN (15:50)
[2022-03-02 16:00] LABS: ALANINE AMINOTRANSFERASE 19 U/L (12-78); ALBUMIN/GLOBULIN RATIO 0.8 (1.1-1.5); ALKALINE PHOSPHATASE 72 IU/L (46-116); ANION GAP 5 (8-16); ASPARTATE AMINO TRANSFERASE 22 U/L (10-37); BILIRUBIN,TOTAL 0.4 MG/DL (0.1-1.0); BLOOD UREA NITROGEN 37 MG/DL (7-18); BUN/CREATININE RATIO 18.9 (6.6-38.0); CALCIUM 9.5 MG/DL (8.5-10.1); CHLORIDE 101 MMOL/L (99-107); CREATININE 1.96 MG/DL (0.40-0.90); GLUCOSE 114 MG/DL (70-104); MAGNESIUM 2.4 MG/DL (1.5-2.4); POTASSIUM 4.9 MMOL/L (3.5-5.1); SODIUM 145 MMOL/L (135-145); eGFR 24 ML/MIN
[2022-03-02] MEDS ORDERED: digoxin 250mcg/ml 2ml ampule IV ONE ×2 (16:10→23:00)
[2022-03-02] MEDS ORDERED: albuterol 2.5 MG/3 ML nebule NEB SCH (17:00)
[2022-03-02] MEDS: ipratropium/albuterol 3ml nebule NEB SCH ×2 (17:00→20:07)
--- NOTE | 2022-03-02 17:00 | NUR ---
PAGED DR ACOSTA TO ASK IF WE COULD TRY AMIODARONE DRIP PER MD PT JUST RECEIVED DIGOXIN 250 MCG IV AND DOES NOT RECOMMEND AMIODARONE FOR PT AGE AND OKAY WITH HR OF 122. WILL FOLLOW THE ORDERS.
--- NOTE | 2022-03-02 17:43 | NUR ---
Dona la in [facility] - 03/02/22 at 1744 by SVEN CHENCHO NEWBY AT THIS TIME FOR SVN TX.
--- NOTE | 2022-03-02 17:52 | NUR ---
SPOKE TO SON SHANKAR AND INFORMED THAT PT IS STABLE AND EXPLAIN THE POC.
[2022-03-02] MEDS: K and/or MAG REPLACEMENT MC SCH (20:00)
--- NOTE | 2022-03-02 20:13 | NUR ---
RT AT BEDSIDE AND THEN RN TAKING PATIENT UPSTAIRS
[2022-03-02 20:47] VITALS: BP 130/56
[2022-03-02] MEDS: furosemide 20 MG/2 ML vial IV SCH (20:49)
[2022-03-02] MEDS: apixaban 2.5mg tablet PO SCH (20:49)
[2022-03-02 22:00] VITALS: BP 135/63
[2022-03-03 02:00] VITALS: BP 137/57
[2022-03-03 06:00] VITALS: BP 132/55
[2022-03-03] MEDS ORDERED: digoxin 250mcg/ml 2ml ampule IV ONE (06:00)
--- NOTE | 2022-03-03 06:27 | NUR ---
Change of shift report given to SOPHIE Matamoros. Issues reprioritized. Patient stable. No acute complaints.
[2022-03-03 07:07] LABS: BASOPHILS # (AUTO) 0.1 X10'3 (0-0.2); BASOPHILS % (AUTO) 0.8 % (0-1); EOSINOPHILS % (AUTO) 0.7 % (0-6); HEMATOCRIT 26.9 % (35.0-45.0); HEMOGLOBIN 8.8 g/dl (12.0-16.0); LYMPHOCYTES # (AUTO) 0.7 X10'3 (1.1-4.8); LYMPHOCYTES % (AUTO) 10.5 % (21-51); MEAN CORPUSCULAR HEMOGLOBIN 28.8 PG (27.0-31.0); MEAN CORPUSCULAR HGB CONC 32.7 g/dL (33.0-36.5); MEAN PLATELET VOLUME 7.2 FL (7.4-10.4); MONOCYTES # (AUTO) 0.9 X10'3 (0-0.9); MONOCYTES % (AUTO) 13.2 % (2-12); NEUTROPHILS # (AUTO) 5.1 X10'3 (1.8-7.7); NEUTROPHILS % (AUTO) 74.8 % (42-75); PLATELET COUNT 312 X10'3 (140-440); RED BLOOD COUNT 3.06 X10'6 (4.20-5.60); RED CELL DISTRIBUTION WIDTH 14.5 % (11.5-14.5); WHITE BLOOD COUNT 6.8 X10'3 (4.5-11.0)
[2022-03-03 07:30] LABS: ALANINE AMINOTRANSFERASE 16 U/L (12-78); ALBUMIN 2.4 G/DL (3.4-5.0); ALBUMIN/GLOBULIN RATIO 0.7 (1.1-1.5); ALKALINE PHOSPHATASE 59 IU/L (46-116); ANION GAP 3 (8-16); ASPARTATE AMINO TRANSFERASE 18 U/L (10-37); BILIRUBIN,TOTAL 0.3 MG/DL (0.1-1.0); BLOOD UREA NITROGEN 34 MG/DL (7-18); BUN/CREATININE RATIO 16.2 (6.6-38.0); CALCIUM 8.8 MG/DL (8.5-10.1); CHLORIDE 101 MMOL/L (99-107); GLUCOSE 104 MG/DL (70-104); POTASSIUM 4.5 MMOL/L (3.5-5.1); SODIUM 144 MMOL/L (135-145); TOTAL PROTEIN 5.9 G/DL (6.4-8.2); eGFR 22 ML/MIN
[2022-03-03 07:45] LABS: TOTAL CARBON DIOXIDE 40.5 MMOL/L (24-32)
[2022-03-03] MEDS: ipratropium/albuterol 3ml nebule NEB SCH ×4 (08:00→19:30)
[2022-03-03] MEDS: K and/or MAG REPLACEMENT MC SCH ×2 (08:00→19:25)
[2022-03-03] MEDS ORDERED: metoprolol succinate 25mg (24-HOUR) SR. Tablet PO SCH (08:10)
[2022-03-03] MEDS: furosemide 20 MG/2 ML vial IV SCH ×2 (08:59→20:14)
[2022-03-03] MEDS: apixaban 2.5mg tablet PO SCH ×2 (08:59→20:14)
[2022-03-03] MEDS ORDERED: amiodarone 150mg/dext, iso-os 100 ML IV ONE (10:20)
[2022-03-03 11:00] VITALS: BP 120/50
[2022-03-03] MEDS: amiodarone/D5 360MG/200ML BAG 200 ML IV SCH ×2 (11:59→18:18)
[2022-03-03 15:00] VITALS: BP 105/42
[2022-03-03] MEDS ORDERED: ALPRAZolam 0.25mg tablet PO PRN (15:15)
[2022-03-03] MEDS ORDERED: metoprolol tartrate 50mg tablet PO ONE (15:15)
[2022-03-03 18:00] VITALS: BP 125/49
[2022-03-03] MEDS: [UNRECOGNIZED DRUG - OTHER] PO SCH (20:00)
[2022-03-03] MEDS ORDERED: apixaban 2.5mg tablet PO SCH (20:00)
[2022-03-03] MEDS: ondansetron/PF 4mg/2ml inj IV PRN (20:22)
[2022-03-03] MEDS ORDERED: losartan 50mg tablet PO SCH (21:00)
[2022-03-03 22:00] VITALS: BP 130/60
[2022-03-04] VITALS (12 sets, daily range): BP systolic 109–132; BP diastolic 52–69
[2022-03-04 06:24] LABS: BASOPHILS % (AUTO) 0.5 % (0-1); EOSINOPHILS % (AUTO) 0.4 % (0-6); HEMATOCRIT 28.4 % (35.0-45.0); HEMOGLOBIN 9.3 g/dl (12.0-16.0); LYMPHOCYTES # (AUTO) 0.7 X10'3 (1.1-4.8); LYMPHOCYTES % (AUTO) 9.3 % (21-51); MEAN CORPUSCULAR HEMOGLOBIN 28.8 PG (27.0-31.0); MEAN CORPUSCULAR HGB CONC 32.6 g/dL (33.0-36.5); MEAN CORPUSCULAR VOLUME 88.3 FL (78-98); MEAN PLATELET VOLUME 7.2 FL (7.4-10.4); MONOCYTES # (AUTO) 1.1 X10'3 (0-0.9); NEUTROPHILS # (AUTO) 5.4 X10'3 (1.8-7.7); NEUTROPHILS % (AUTO) 74.8 % (42-75); PLATELET COUNT 290 X10'3 (140-440); RED BLOOD COUNT 3.21 X10'6 (4.20-5.60); WHITE BLOOD COUNT 7.2 X10'3 (4.5-11.0)
[2022-03-04] MEDS: amiodarone/D5 360MG/200ML BAG 200 ML IV SCH ×3 (06:27→22:44)
[2022-03-04 06:55] LABS: ALANINE AMINOTRANSFERASE 15 U/L (12-78); ALBUMIN 2.6 G/DL (3.4-5.0); ALBUMIN/GLOBULIN RATIO 0.7 (1.1-1.5); ALKALINE PHOSPHATASE 59 IU/L (46-116); ANION GAP 4 (8-16); ASPARTATE AMINO TRANSFERASE 18 U/L (10-37); BILIRUBIN,TOTAL 0.3 MG/DL (0.1-1.0); BLOOD UREA NITROGEN 33 MG/DL (7-18); BUN/CREATININE RATIO 15.3 (6.6-38.0); CALCIUM 8.9 MG/DL (8.5-10.1); CHLORIDE 99 MMOL/L (99-107); CHOLESTEROL 165 MG/DL (0-200); CREATININE 2.15 MG/DL (0.40-0.90); GLUCOSE 104 MG/DL (70-104); HDL CHOLESTEROL 55 MG/DL (35-60); LDL CHOLESTEROL 95 MG/DL (50-100); MAGNESIUM 2.1 MG/DL (1.5-2.4); POTASSIUM 4.4 MMOL/L (3.5-5.1); SODIUM 143 MMOL/L (135-145); TOTAL PROTEIN 6.2 G/DL (6.4-8.2); TRIGLYCERIDES 61 MG/DL (20-135); eGFR 22 ML/MIN
[2022-03-04 07:06] LABS: TOTAL CARBON DIOXIDE 40.1 MMOL/L (24-32)
[2022-03-04] MEDS: normal saline 1000ml 1,000 ML IV SCH (07:20)
[2022-03-04] MEDS: ipratropium/albuterol 3ml nebule NEB SCH ×4 (07:31→20:45)
[2022-03-04] MEDS: apixaban 2.5mg tablet PO SCH (08:00)
[2022-03-04] MEDS: levoTHYROXINE 112mcg tablet PO SCH (08:00)
[2022-03-04] MEDS ORDERED: HYDROchlorothiazide 25mg tablet PO SCH (08:00)
[2022-03-04] MEDS: [UNRECOGNIZED DRUG - OTHER] PO SCH ×2 (08:00→20:00)
[2022-03-04] MEDS: furosemide 20 MG/2 ML vial IV SCH ×2 (08:00→19:47)
[2022-03-04] MEDS: K and/or MAG REPLACEMENT MC SCH ×2 (08:00→20:00)
[2022-03-04] MEDS: ondansetron/PF 4mg/2ml inj IV PRN (08:18)
--- NOTE | 2022-03-04 09:00 | NUR ---
Zofran was not effective - MD was notified. Pt does not want to take any other n/v medications or her scheduled medications until she feels better. Pending orders from MD for poss digibind/digifab. Monitoring patient.
--- NOTE | 2022-03-04 10:45 | NUR ---
Patient still is refusing all oral medication until she doesnt feel nauseous. aware
[2022-03-04] MEDS ORDERED: NORMAL SALINE IV ONE (11:25)
[2022-03-04] MEDS ORDERED: DIGOXIN IMMUNE FAB IV ONE (11:25)
[2022-03-04] MEDS: metoprolol succinate 25mg (24-HOUR) SR. Tablet PO SCH (13:22)
[2022-03-04] MEDS: piperacillin/tazo 3.375gm/50ml 50 ML IV SCH (17:25)
[2022-03-05] VITALS (12 sets, daily range): BP systolic 91–114; BP diastolic 39–56
[2022-03-05] MEDS: piperacillin/tazo 3.375gm/50ml 50 ML IV SCH ×3 (00:19→20:00)
[2022-03-05] MEDS: amiodarone/D5 360MG/200ML BAG 200 ML IV SCH ×4 (06:17→23:00)
[2022-03-05] MEDS: furosemide 20 MG/2 ML vial IV SCH ×2 (07:44→20:00)
[2022-03-05] MEDS: metoprolol succinate 25mg (24-HOUR) SR. Tablet PO SCH (07:45)
[2022-03-05] MEDS: levoTHYROXINE 112mcg tablet PO SCH (07:45)
[2022-03-05] MEDS: [UNRECOGNIZED DRUG - OTHER] PO SCH ×2 (07:45→20:00)
[2022-03-05] MEDS: ipratropium/albuterol 3ml nebule NEB SCH ×4 (07:57→20:49)
[2022-03-05] MEDS: K and/or MAG REPLACEMENT MC SCH ×2 (08:00→20:00)
[2022-03-05] MEDS: ondansetron/PF 4mg/2ml inj IV PRN ×2 (08:15→15:04)
[2022-03-05 08:38] LABS: BASOPHILS % (AUTO) 0.6 % (0-1); EOSINOPHILS % (AUTO) 0.1 % (0-6); HEMATOCRIT 23.8 % (35.0-45.0); HEMOGLOBIN 7.8 g/dl (12.0-16.0); LYMPHOCYTES # (AUTO) 0.6 X10'3 (1.1-4.8); LYMPHOCYTES % (AUTO) 7.5 % (21-51); MEAN CORPUSCULAR HEMOGLOBIN 28.1 PG (27.0-31.0); MEAN CORPUSCULAR HGB CONC 32.6 g/dL (33.0-36.5); MEAN CORPUSCULAR VOLUME 86.2 FL (78-98); MEAN PLATELET VOLUME 7.4 FL (7.4-10.4); MONOCYTES # (AUTO) 1.4 X10'3 (0-0.9); MONOCYTES % (AUTO) 18.3 % (2-12); NEUTROPHILS # (AUTO) 5.5 X10'3 (1.8-7.7); NEUTROPHILS % (AUTO) 73.5 % (42-75); PLATELET COUNT 270 X10'3 (140-440); RED BLOOD COUNT 2.76 X10'6 (4.20-5.60); RED CELL DISTRIBUTION WIDTH 15.1 % (11.5-14.5); WHITE BLOOD COUNT 7.5 X10'3 (4.5-11.0)
[2022-03-05 08:42] LABS: ALANINE AMINOTRANSFERASE 13 U/L (12-78); ALBUMIN 2.4 G/DL (3.4-5.0); ALBUMIN/GLOBULIN RATIO 0.7 (1.1-1.5); ALKALINE PHOSPHATASE 52 IU/L (46-116); ANION GAP 6 (8-16); ASPARTATE AMINO TRANSFERASE 16 U/L (10-37); BILIRUBIN,TOTAL 0.4 MG/DL (0.1-1.0); BLOOD UREA NITROGEN 32 MG/DL (7-18); BUN/CREATININE RATIO 15.5 (6.6-38.0); CALCIUM 8.5 MG/DL (8.5-10.1); CHLORIDE 98 MMOL/L (99-107); CREATININE 2.06 MG/DL (0.40-0.90); GLUCOSE 118 MG/DL (70-104); MAGNESIUM 1.9 MG/DL (1.5-2.4); POTASSIUM 4.1 MMOL/L (3.5-5.1); SODIUM 144 MMOL/L (135-145); eGFR 23 ML/MIN
[2022-03-05 08:45] LABS: TOTAL CARBON DIOXIDE 40.2 MMOL/L (24-32)
[2022-03-05 09:16] LABS: TOTAL CELLS COUNTED 100
[2022-03-05 09:18] LABS: ELLIPTOCYTES FEW; PLATELET ESTIMATE NORMAL; STOMATOCYTES 1+
[2022-03-05] MEDS ORDERED: proCHLORperazine 10 MG/2 ml inj IV PRN (12:20)
--- NOTE | 2022-03-05 16:16 | NUR ---
Page Sent promotional table spacer PAGER ID: [phone] MESSAGE: [id number] Fiordalizalaurajessicaeryn. Pt is hypotensive with a BP of 93/42 with a map of 51. Pt has been a little hypotensive this afternoon but the map has been good. H&H dropped. HRs 100s- 110s. Sharla@[id number]
[2022-03-05] MEDS ORDERED: normal saline 250ml IV soln 250 ML IV ONE (16:20)
--- NOTE | 2022-03-05 18:16 | NUR ---
Problems reprioritized. Patient report given, questions answered & plan of care reviewed with Clair BARRIOS . Patient resting in bed eating dinner in no acute distress.
[2022-03-05] MEDS ORDERED: albumin (Human) 5% 250ml 250 ML IV ONE (19:35)
[2022-03-05] MEDS ORDERED: LIDOcaine 2% 10ml TOPICAL JELLY (Urojet) TP ONE (19:50)
[2022-03-05 20:34] LABS: CREATINE KINASE 27 U/L (26-192); LIPASE 68 U/L (73-393); MAGNESIUM 1.8 MG/DL (1.5-2.4)
[2022-03-06] VITALS (9 sets, daily range): BP systolic 102–134; BP diastolic 43–70
[2022-03-06] MEDS: amiodarone/D5 360MG/200ML BAG 200 ML IV SCH ×4 (04:56→23:16)
--- NOTE | 2022-03-06 06:10 | NUR ---
Patient in room PCU 3024. I have received report from Carline BARRIOS and had the opportunity to ask questions and assume patient care.
[2022-03-06 06:37] LABS: BASOPHILS % (AUTO) 0.6 % (0-1); EOSINOPHILS # (AUTO) 0.1 X10'3 (0-0.9); LYMPHOCYTES # (AUTO) 0.6 X10'3 (1.1-4.8); MONOCYTES # (AUTO) 1.5 X10'3 (0-0.9); NEUTROPHILS # (AUTO) 6.3 X10'3 (1.8-7.7)
[2022-03-06 06:39] LABS: EOSINOPHILS % (AUTO) 1.5 % (0-6); HEMATOCRIT 30.2 % (35.0-45.0); LYMPHOCYTES % (AUTO) 7.1 % (21-51); MEAN CORPUSCULAR HEMOGLOBIN 28.5 PG (27.0-31.0); MEAN CORPUSCULAR HGB CONC 33.1 g/dL (33.0-36.5); MEAN CORPUSCULAR VOLUME 86.3 FL (78-98); MEAN PLATELET VOLUME 7.4 FL (7.4-10.4); MONOCYTES % (AUTO) 17.6 % (2-12); NEUTROPHILS % (AUTO) 73.2 % (42-75); PLATELET COUNT 275 X10'3 (140-440); RED CELL DISTRIBUTION WIDTH 15.7 % (11.5-14.5); WHITE BLOOD COUNT 8.6 X10'3 (4.5-11.0)
[2022-03-06 06:55] LABS: ALANINE AMINOTRANSFERASE 15 U/L (12-78); ALBUMIN 2.9 G/DL (3.4-5.0); ALBUMIN/GLOBULIN RATIO 0.7 (1.1-1.5); ALKALINE PHOSPHATASE 53 IU/L (46-116); ANION GAP 7 (8-16); ASPARTATE AMINO TRANSFERASE 18 U/L (10-37); BILIRUBIN,TOTAL 0.7 MG/DL (0.1-1.0); BLOOD UREA NITROGEN 37 MG/DL (7-18); BUN/CREATININE RATIO 15.8 (6.6-38.0); CALCIUM 8.3 MG/DL (8.5-10.1); CHLORIDE 98 MMOL/L (99-107); CREATININE 2.34 MG/DL (0.40-0.90); GLUCOSE 109 MG/DL (70-104); MAGNESIUM 2.1 MG/DL (1.5-2.4); POTASSIUM 3.9 MMOL/L (3.5-5.1); SODIUM 144 MMOL/L (135-145); TOTAL PROTEIN 6.9 G/DL (6.4-8.2); eGFR 20 ML/MIN
[2022-03-06 07:00] LABS: % IRON SATURATION 46 % (11-46); IRON 135 UG/DL (49-151); TOTAL IRON BINDING CAPACITY 296 UG/DL (259-388)
[2022-03-06] MEDS: ipratropium/albuterol 3ml nebule NEB SCH ×4 (07:27→20:16)
[2022-03-06] MEDS: furosemide 20 MG/2 ML vial IV SCH ×2 (08:00→20:21)
[2022-03-06] MEDS: [UNRECOGNIZED DRUG - OTHER] PO SCH (08:00)
[2022-03-06] MEDS: metoprolol succinate 25mg (24-HOUR) SR. Tablet PO SCH (08:00)
[2022-03-06] MEDS: K and/or MAG REPLACEMENT MC SCH ×2 (08:00→20:00)
[2022-03-06] MEDS: levoTHYROXINE 112mcg tablet PO SCH (08:02)
[2022-03-06] MEDS: normal saline 1000ml 1,000 ML IV SCH (08:03)
[2022-03-06] MEDS: piperacillin/tazo 3.375gm/50ml 50 ML IV SCH ×2 (08:51→20:20)
--- NOTE | 2022-03-06 09:37 | NUR ---
Initial: Pt admitted w/ Afib w/ RVR, bilateral pleural effusions, and digoxin toxicity per EMR. Currently on Heart healthy diet w/ 1.2L Fluid restriction per MD, averaging 25% intake of meals not meeting needs. Recommend BSS w/ HAT FINISHING MATERIALS PREPARER given pt on MM5 diet on previous admit. Previous food preferences have been discussed w/ dietary. Recommend initiation of nutrition support at this time as pt has inadequate PO intake throughout prior recent admits and does not like ONS. Will continue to monitor. Recs: 1. Liberalize to Regular diet w/ fluids per MD given lipids WNL, BSS w/ HAT FINISHING MATERIALS PREPARER 2. [place] food preferences: yogurt BIDBD, toast WB, cottage cheese WL, prefers sandwiches and salads; no eggs to eat, milk to drink, or bananas; pt dislikes Ensure 3. Supplemental NGTF given inadequate PO intake throughout prior admits if within POC 4. Routine bowel care 5. Scaled wts Addendum: 03/06/22 at [address] Amended: Links added.
--- NOTE | 2022-03-06 11:57 | NUR ---
Due to low BP yesterday and today I held lasix and metoprolol so there would be no issues with getting thora today.
[2022-03-06] MEDS ORDERED: bisacodyl 5mg tablet.DR PO PRN (12:30)
[2022-03-06] MEDS ORDERED: magnesium hydroxide 30ml (MOM) UD suspension PO PRN (12:30)
[2022-03-06] MEDS ORDERED: LIDOcaine 1%/PF 5ML 10 MG/ML VIAL ONE (14:41)
[2022-03-06 16:27] LABS: PLEURAL FLUID PH 7.383 (7.63-7.65)
[2022-03-06 16:28] LABS: BFSOURCE PLEURAL FLD
[2022-03-06 16:43] LABS: GLUCOSE,BODY FLUID 146 MG/DL; LDH,BODY FLUID 102 U/L; TOTAL PROTEIN,BODY FLUID < 2.0 G/DL
[2022-03-06 17:47] LABS: BF RBC COUNT 3850 /CU MM; BF WBC COUNT 293 /CU MM (0-1000); BFAPPEAR HAZY; BFCOLOR YELLOW; BFVOLUME 63 ML; LYMPHOCYTES,BODY FLUID 81 %; MONOCYTES,BODY FLUID 9 %; NEUTROPHILS,BODY FLUID 10 %
--- NOTE | 2022-03-06 18:24 | NUR ---
Problems reprioritized. Patient report given, questions answered & plan of care reviewed with Carline BARRIOS. Patient resting in bed in no acute distress.
[2022-03-06] MEDS: docusate sod 100mg capsule PO SCH (20:23)
[2022-03-07 02:00] VITALS: BP 117/64
[2022-03-07] MEDS: amiodarone/D5 360MG/200ML BAG 200 ML IV SCH ×4 (04:28→23:32)
[2022-03-07 07:00] VITALS: BP 135/73
[2022-03-07] MEDS: ipratropium/albuterol 3ml nebule NEB SCH ×4 (07:21→20:47)
[2022-03-07 07:41] LABS: BASOPHILS # (AUTO) 0.1 X10'3 (0-0.2); BASOPHILS % (AUTO) 0.4 % (0-1); EOSINOPHILS # (AUTO) 0.1 X10'3 (0-0.9); EOSINOPHILS % (AUTO) 0.7 % (0-6); HEMATOCRIT 34.8 % (35.0-45.0); HEMOGLOBIN 11.3 g/dl (12.0-16.0); LYMPHOCYTES # (AUTO) 0.6 X10'3 (1.1-4.8); LYMPHOCYTES % (AUTO) 4.2 % (21-51); MEAN CORPUSCULAR HGB CONC 32.6 g/dL (33.0-36.5); MEAN CORPUSCULAR VOLUME 85.9 FL (78-98); MEAN PLATELET VOLUME 7.3 FL (7.4-10.4); MONOCYTES # (AUTO) 1.9 X10'3 (0-0.9); MONOCYTES % (AUTO) 14.4 % (2-12); NEUTROPHILS # (AUTO) 10.7 X10'3 (1.8-7.7); NEUTROPHILS % (AUTO) 80.3 % (42-75); PLATELET COUNT 316 X10'3 (140-440); RED BLOOD COUNT 4.05 X10'6 (4.20-5.60); RED CELL DISTRIBUTION WIDTH 15.6 % (11.5-14.5); WHITE BLOOD COUNT 13.3 X10'3 (4.5-11.0)
[2022-03-07] MEDS: K and/or MAG REPLACEMENT MC SCH ×2 (08:00→20:00)
[2022-03-07 08:02] LABS: ALANINE AMINOTRANSFERASE 6 U/L (12-78); ALBUMIN 2.9 G/DL (3.4-5.0); ALBUMIN/GLOBULIN RATIO 0.7 (1.1-1.5); ALKALINE PHOSPHATASE 58 IU/L (46-116); ANION GAP 10 (8-16); ASPARTATE AMINO TRANSFERASE 19 U/L (10-37); BILIRUBIN,TOTAL 0.5 MG/DL (0.1-1.0); BLOOD UREA NITROGEN 43 MG/DL (7-18); BUN/CREATININE RATIO 15.8 (6.6-38.0); CALCIUM 8.2 MG/DL (8.5-10.1); CHLORIDE 96 MMOL/L (99-107); CREATININE 2.73 MG/DL (0.40-0.90); GLUCOSE 134 MG/DL (70-104); MAGNESIUM 2.3 MG/DL (1.5-2.4); POTASSIUM 3.8 MMOL/L (3.5-5.1); SODIUM 141 MMOL/L (135-145); TOTAL CARBON DIOXIDE 35.2 MMOL/L (24-32); TOTAL PROTEIN 7.2 G/DL (6.4-8.2); eGFR 16 ML/MIN
[2022-03-07] MEDS: metoprolol succinate 25mg (24-HOUR) SR. Tablet PO SCH (08:45)
[2022-03-07] MEDS: piperacillin/tazo 3.375gm/50ml 50 ML IV SCH (09:02)
[2022-03-07] MEDS: docusate sod 100mg capsule PO SCH ×2 (09:03→20:16)
[2022-03-07] MEDS: levoTHYROXINE 112mcg tablet PO SCH (09:03)
[2022-03-07] MEDS: apixaban 2.5mg tablet PO SCH ×2 (09:03→20:16)
[2022-03-07] MEDS: furosemide 20 MG/2 ML vial IV SCH (09:03)
--- NOTE | 2022-03-07 10:16 | NUR ---
zozsyn scanned and hung but was not started due to rash on patient trunk.
[2022-03-07] MEDS: CefTRIAXone/D5W-Rocephin 1gm 50 ML IV SCH (10:43)
[2022-03-07 11:00] VITALS: BP 119/58
[2022-03-07] MEDS ORDERED: diphenhydrAMINE 25mg capsule PO PRN (11:15)
[2022-03-07] MEDS ORDERED: ondansetron 4mg rapidly disintigrating tab PO PRN (11:55)
--- NOTE | 2022-03-07 12:30 | NUR ---
second call to xray for stat read on chest xray - no report yet - second request for stat read
[2022-03-07 13:00] VITALS: BP 92/45
[2022-03-07] MEDS: [UNRECOGNIZED DRUG - OTHER] PO SCH ×2 (13:23→20:17)
[2022-03-07] MEDS: diphenhydrAMINE 25mg capsule PO PRN (13:25)
--- NOTE | 2022-03-07 15:09 | NUR ---
because of low bp the last few days i wanted to use caution give BP med and lasix. I gave lasix and held metoprolol this am to stager meds and see what happened . BP has been in control all day and dipped below 100 this afternoon. Will hold metoprolol for today.
--- NOTE | 2022-03-07 17:27 | NUR ---
patient ate bag small bag of strawberries friend dropped off for her
[2022-03-07 18:00] VITALS: BP 93/52
--- NOTE | 2022-03-07 18:28 | NUR ---
Problems reprioritized. Patient report given, questions answered & plan of care reviewed with Carline BARRIOS. Patient resting in bed in no acute distress.
[2022-03-07] MEDS: normal saline 1000ml 1,000 ML IV SCH (19:04)
[2022-03-07 22:00] VITALS: BP 121/80
[2022-03-08 02:00] VITALS: BP 106/50
[2022-03-08] MEDS: amiodarone/D5 360MG/200ML BAG 200 ML IV SCH ×2 (05:36→11:40)
[2022-03-08 06:00] VITALS: BP 102/51
[2022-03-08] MEDS: K and/or MAG REPLACEMENT MC SCH ×2 (07:21→20:25)
[2022-03-08] MEDS: ipratropium/albuterol 3ml nebule NEB SCH ×4 (08:00→20:31)
[2022-03-08] MEDS: normal saline 1000ml 1,000 ML IV SCH (09:22)
[2022-03-08 09:27] LABS: BASOPHILS # (AUTO) 0.1 X10'3 (0-0.2); BASOPHILS % (AUTO) 0.6 % (0-1); EOSINOPHILS # (AUTO) 0.2 X10'3 (0-0.9); EOSINOPHILS % (AUTO) 2.4 % (0-6); HEMOGLOBIN 10.6 g/dl (12.0-16.0); LYMPHOCYTES # (AUTO) 0.5 X10'3 (1.1-4.8); LYMPHOCYTES % (AUTO) 5.3 % (21-51); MEAN CORPUSCULAR HEMOGLOBIN 28.6 PG (27.0-31.0); MEAN CORPUSCULAR VOLUME 86.6 FL (78-98); MEAN PLATELET VOLUME 7.7 FL (7.4-10.4); MONOCYTES # (AUTO) 1.1 X10'3 (0-0.9); MONOCYTES % (AUTO) 10.9 % (2-12); NEUTROPHILS # (AUTO) 8.2 X10'3 (1.8-7.7); NEUTROPHILS % (AUTO) 80.8 % (42-75); PLATELET COUNT 319 X10'3 (140-440); RED CELL DISTRIBUTION WIDTH 15.8 % (11.5-14.5); WHITE BLOOD COUNT 10.1 X10'3 (4.5-11.0)
[2022-03-08 09:28] LABS: ALANINE AMINOTRANSFERASE 12 U/L (12-78); ALBUMIN 2.7 G/DL (3.4-5.0); ALBUMIN/GLOBULIN RATIO 0.7 (1.1-1.5); ALKALINE PHOSPHATASE 56 IU/L (46-116); ANION GAP 6 (8-16); ASPARTATE AMINO TRANSFERASE 15 U/L (10-37); BILIRUBIN,TOTAL 0.3 MG/DL (0.1-1.0); BLOOD UREA NITROGEN 49 MG/DL (7-18); BUN/CREATININE RATIO 17.9 (6.6-38.0); CALCIUM 8.2 MG/DL (8.5-10.1); CHLORIDE 95 MMOL/L (99-107); CREATININE 2.73 MG/DL (0.40-0.90); GLUCOSE 101 MG/DL (70-104); POTASSIUM 3.6 MMOL/L (3.5-5.1); SODIUM 140 MMOL/L (135-145); TOTAL CARBON DIOXIDE 39.5 MMOL/L (24-32); TOTAL PROTEIN 6.7 G/DL (6.4-8.2); eGFR 16 ML/MIN
[2022-03-08 09:41] LABS: APTT 31 SECONDS (22-32)
[2022-03-08] MEDS: docusate sod 100mg capsule PO SCH ×2 (10:26→20:24)
[2022-03-08] MEDS: apixaban 2.5mg tablet PO SCH ×2 (10:26→20:24)
[2022-03-08] MEDS: metoprolol succinate 25mg (24-HOUR) SR. Tablet PO SCH (10:26)
[2022-03-08] MEDS: levoTHYROXINE 112mcg tablet PO SCH (10:26)
[2022-03-08] MEDS: CefTRIAXone/D5W-Rocephin 1gm 50 ML IV SCH (10:27)
[2022-03-08] MEDS: [UNRECOGNIZED DRUG - OTHER] PO SCH ×2 (10:35→20:00)
[2022-03-08 11:00] VITALS: BP 108/52
[2022-03-08 15:00] VITALS: BP 118/53
[2022-03-08] MEDS: amiodarone 200mg tablet PO SCH (16:07)
[2022-03-08 18:00] VITALS: BP 114/57
[2022-03-08] MEDS: diphenhydrAMINE 25mg capsule PO PRN (18:04)
[2022-03-08 22:00] VITALS: BP 111/59
[2022-03-09] MEDS: diphenhydrAMINE 25mg capsule PO PRN ×3 (00:46→21:26)
[2022-03-09 02:00] VITALS: BP 108/53
[2022-03-09 06:12] LABS: BASOPHILS # (AUTO) 0.1 X10'3 (0-0.2); BASOPHILS % (AUTO) 0.6 % (0-1); EOSINOPHILS # (AUTO) 0.3 X10'3 (0-0.9); EOSINOPHILS % (AUTO) 3.3 % (0-6); HEMATOCRIT 31.6 % (35.0-45.0); HEMOGLOBIN 10.6 g/dl (12.0-16.0); LYMPHOCYTES # (AUTO) 0.5 X10'3 (1.1-4.8); LYMPHOCYTES % (AUTO) 4.9 % (21-51); MEAN CORPUSCULAR HEMOGLOBIN 28.9 PG (27.0-31.0); MEAN CORPUSCULAR HGB CONC 33.5 g/dL (33.0-36.5); MEAN CORPUSCULAR VOLUME 86.4 FL (78-98); MEAN PLATELET VOLUME 7.5 FL (7.4-10.4); MONOCYTES # (AUTO) 1.1 X10'3 (0-0.9); MONOCYTES % (AUTO) 11.1 % (2-12); NEUTROPHILS # (AUTO) 8.2 X10'3 (1.8-7.7); NEUTROPHILS % (AUTO) 80.1 % (42-75); PLATELET COUNT 327 X10'3 (140-440); RED BLOOD COUNT 3.66 X10'6 (4.20-5.60); RED CELL DISTRIBUTION WIDTH 15.3 % (11.5-14.5); WHITE BLOOD COUNT 10.3 X10'3 (4.5-11.0)
[2022-03-09 06:17] LABS: APTT 32 SECONDS (22-32)
[2022-03-09 06:22] LABS: ALANINE AMINOTRANSFERASE 9 U/L (12-78); ALBUMIN 2.5 G/DL (3.4-5.0); ALBUMIN/GLOBULIN RATIO 0.6 (1.1-1.5); ALKALINE PHOSPHATASE 52 IU/L (46-116); ANION GAP 6 (8-16); ASPARTATE AMINO TRANSFERASE 14 U/L (10-37); BILIRUBIN,TOTAL 0.2 MG/DL (0.1-1.0); BLOOD UREA NITROGEN 53 MG/DL (7-18); BUN/CREATININE RATIO 20.4 (6.6-38.0); CALCIUM 8.2 MG/DL (8.5-10.1); CHLORIDE 96 MMOL/L (99-107); GLUCOSE 95 MG/DL (70-104); POTASSIUM 3.6 MMOL/L (3.5-5.1); SODIUM 141 MMOL/L (135-145); TOTAL PROTEIN 6.5 G/DL (6.4-8.2); eGFR 17 ML/MIN
--- NOTE | 2022-03-09 06:41 | NUR ---
Patient in room PCU 3024. I have received report from SOPHIE Parr and had the opportunity to ask questions and assume patient care.
[2022-03-09] MEDS: apixaban 2.5mg tablet PO SCH ×2 (07:07→20:00)
[2022-03-09 07:09] VITALS: BP 120/55
[2022-03-09] MEDS: CefTRIAXone/D5W-Rocephin 1gm 50 ML IV SCH (07:38)
[2022-03-09] MEDS: metoprolol succinate 25mg (24-HOUR) SR. Tablet PO SCH ×2 (07:39→08:00)
[2022-03-09] MEDS: amiodarone 200mg tablet PO SCH ×2 (07:39→08:00)
[2022-03-09] MEDS: ipratropium/albuterol 3ml nebule NEB SCH ×4 (07:40→21:00)
[2022-03-09] MEDS: levoTHYROXINE 112mcg tablet PO SCH (08:00)
[2022-03-09] MEDS: docusate sod 100mg capsule PO SCH ×2 (08:00→21:26)
[2022-03-09] MEDS: K and/or MAG REPLACEMENT MC SCH ×2 (08:00→20:00)
[2022-03-09] MEDS: [UNRECOGNIZED DRUG - OTHER] PO SCH ×2 (08:00→20:00)
--- NOTE | 2022-03-09 08:06 | NUR ---
Report called to SOPHIE Baldwin at [facility] Cardiac Short Stay. Patient and patient's son Scott aware of transfer. Scott at bedside.
--- NOTE | 2022-03-09 08:51 | NUR ---
Reassessment: Pt now on MM5/NTL per APPRAISER PERSONAL PROPERTY recs w/ Heart Healthy and 1.2L fluid restriction w/ poor PO intake, mostly 25% of meals not meeting needs. Given prolonged inadequate PO intake and BLE 2+ edema, pt meets criteria for malnutrition. Pt will be going to [facility] for procedure and then coming back here per EMR. Recommend initiation of nutrition support at this time as pt has inadequate PO intake throughout prior recent admits and does not like ONS. Will continue to monitor. Recs: 1. Liberalize to Regular/MM5/NTL diet w/ fluids per MD given lipids WNL, 2. Supplemental NGTF given inadequate PO intake throughout prior admits if within POC 3. [place] food preferences: yogurt BIDBD, toast WB, cottage cheese WL, prefers sandwiches and salads; no eggs to eat, milk to drink, or bananas; pt dislikes Ensure 4. Routine bowel care 5. Scaled wts Addendum: 03/09/22 at [address] Amended: Links added.
[2022-03-09] MEDS ORDERED: diphenhydrAMINE 50 mg/ml inj IV PRN (09:35)
--- NOTE | 2022-03-09 09:47 | NUR ---
Patient transported to [facility] via ambulance withx2 ambulance staff.
--- NOTE | 2022-03-09 18:17 | NUR ---
Problems reprioritized. Patient report given, questions answered & plan of care reviewed with SOHPIE Wylie.
--- NOTE | 2022-03-09 19:18 | NUR ---
Patient not available for SVN tx will check back later
[2022-03-09 22:00] VITALS: BP 117/53
--- NOTE | 2022-03-09 23:00 | NUR ---
Pt returned from ablation PM placement at [facility] via EMS. Pt alert and oriented, denies any pain or nausea. Pt is V paced. Femstop removed, site of entry right groin- gauze with minimal blood and tegerderm. As per order Eliquis not given, all other orders continued. PRN Benadryl given for rash throughout back and trunk. Pt given sandwich to eat, resting comfortably.
[2022-03-10 02:00] VITALS: BP 123/48
[2022-03-10] MEDS: diphenhydrAMINE 25mg capsule PO PRN ×3 (03:26→20:10)
[2022-03-10 06:06] VITALS: BP 126/51
[2022-03-10] MEDS: ipratropium/albuterol 3ml nebule NEB SCH ×4 (08:08→20:18)
[2022-03-10] MEDS: K and/or MAG REPLACEMENT MC SCH ×2 (09:06→20:00)
[2022-03-10] MEDS: docusate sod 100mg capsule PO SCH ×2 (09:07→20:11)
[2022-03-10] MEDS: apixaban 2.5mg tablet PO SCH ×2 (09:09→20:11)
[2022-03-10] MEDS: levoTHYROXINE 112mcg tablet PO SCH (09:09)
[2022-03-10] MEDS: amiodarone 200mg tablet PO SCH (09:09)
[2022-03-10] MEDS: metoprolol succinate 25mg (24-HOUR) SR. Tablet PO SCH (09:11)
[2022-03-10] MEDS: [UNRECOGNIZED DRUG - OTHER] PO SCH ×2 (09:11→20:00)
[2022-03-10 10:13] LABS: BASOPHILS # (AUTO) 0.1 X10'3 (0-0.2); BASOPHILS % (AUTO) 0.5 % (0-1); EOSINOPHILS # (AUTO) 0.2 X10'3 (0-0.9); EOSINOPHILS % (AUTO) 1.4 % (0-6); HEMATOCRIT 32.2 % (35.0-45.0); HEMOGLOBIN 10.6 g/dl (12.0-16.0); LYMPHOCYTES # (AUTO) 0.5 X10'3 (1.1-4.8); LYMPHOCYTES % (AUTO) 3.7 % (21-51); MEAN CORPUSCULAR HEMOGLOBIN 28.6 PG (27.0-31.0); MEAN CORPUSCULAR HGB CONC 32.7 g/dL (33.0-36.5); MEAN CORPUSCULAR VOLUME 87.4 FL (78-98); MEAN PLATELET VOLUME 7.7 FL (7.4-10.4); MONOCYTES # (AUTO) 1.2 X10'3 (0-0.9); MONOCYTES % (AUTO) 8.8 % (2-12); NEUTROPHILS # (AUTO) 12.1 X10'3 (1.8-7.7); NEUTROPHILS % (AUTO) 85.6 % (42-75); PLATELET COUNT 340 X10'3 (140-440); RED BLOOD COUNT 3.69 X10'6 (4.20-5.60); RED CELL DISTRIBUTION WIDTH 15.7 % (11.5-14.5); WHITE BLOOD COUNT 14.2 X10'3 (4.5-11.0)
[2022-03-10 10:44] LABS: ALANINE AMINOTRANSFERASE 13 U/L (12-78); ALBUMIN 2.4 G/DL (3.4-5.0); ALBUMIN/GLOBULIN RATIO 0.6 (1.1-1.5); ALKALINE PHOSPHATASE 57 IU/L (46-116); ANION GAP 6 (8-16); ASPARTATE AMINO TRANSFERASE 15 U/L (10-37); BILIRUBIN,TOTAL 0.2 MG/DL (0.1-1.0); BLOOD UREA NITROGEN 65 MG/DL (7-18); CHLORIDE 98 MMOL/L (99-107); CREATININE 2.95 MG/DL (0.40-0.90); GLUCOSE 150 MG/DL (70-104); MAGNESIUM 2.5 MG/DL (1.5-2.4); POTASSIUM 4.4 MMOL/L (3.5-5.1); SODIUM 142 MMOL/L (135-145); TOTAL CARBON DIOXIDE 37.9 MMOL/L (24-32); TOTAL PROTEIN 6.3 G/DL (6.4-8.2); eGFR 15 ML/MIN
[2022-03-10 11:11] VITALS: BP 118/45
[2022-03-10] MEDS: predniSONE 20 mg tablet PO SCH (14:35)
[2022-03-10 15:15] VITALS: BP 112/49
[2022-03-10 18:00] VITALS: BP 124/54
[2022-03-10 22:00] VITALS: BP 122/46
[2022-03-11] MEDS: diphenhydrAMINE 25mg capsule PO PRN ×2 (01:54→19:58)
[2022-03-11 02:00] VITALS: BP 132/58
[2022-03-11 06:00] VITALS: BP 135/54
--- NOTE | 2022-03-11 06:48 | NUR ---
Problems reprioritized. Patient report given, questions answered & plan of care reviewed with Kirsten BARRIOS.
--- NOTE | 2022-03-11 06:51 | NUR ---
Patient in room PCU 3024. I have received report from Dalia BARRIOS and had the opportunity to ask questions and assume patient care.
[2022-03-11] MEDS: ipratropium/albuterol 3ml nebule NEB SCH ×4 (07:28→19:35)
[2022-03-11] MEDS: apixaban 2.5mg tablet PO SCH ×2 (07:38→19:50)
[2022-03-11] MEDS: metoprolol succinate 25mg (24-HOUR) SR. Tablet PO SCH (07:38)
[2022-03-11] MEDS: predniSONE 20 mg tablet PO SCH (07:38)
[2022-03-11] MEDS: docusate sod 100mg capsule PO SCH ×2 (07:38→19:50)
[2022-03-11] MEDS: levoTHYROXINE 112mcg tablet PO SCH (07:38)
[2022-03-11] MEDS: K and/or MAG REPLACEMENT MC SCH ×2 (08:00→20:00)
[2022-03-11] MEDS: [UNRECOGNIZED DRUG - OTHER] PO SCH ×2 (08:00→20:00)
[2022-03-11 10:00] VITALS: BP 128/43
[2022-03-11 11:14] LABS: HEMOGLOBIN 10.4 g/dl (12.0-16.0)
[2022-03-11 11:15] LABS: BASOPHILS # (AUTO) 0.1 X10'3 (0-0.2); BASOPHILS % (AUTO) 0.4 % (0-1); EOSINOPHILS # (AUTO) 0.1 X10'3 (0-0.9); EOSINOPHILS % (AUTO) 0.5 % (0-6); HEMATOCRIT 32.6 % (35.0-45.0); LYMPHOCYTES # (AUTO) 0.3 X10'3 (1.1-4.8); LYMPHOCYTES % (AUTO) 1.4 % (21-51); MEAN CORPUSCULAR HEMOGLOBIN 27.7 PG (27.0-31.0); MEAN CORPUSCULAR HGB CONC 31.7 g/dL (33.0-36.5); MEAN CORPUSCULAR VOLUME 87.3 FL (78-98); MEAN PLATELET VOLUME 7.9 FL (7.4-10.4); MONOCYTES # (AUTO) 1.1 X10'3 (0-0.9); NEUTROPHILS # (AUTO) 19.8 X10'3 (1.8-7.7); NEUTROPHILS % (AUTO) 92.7 % (42-75); PLATELET COUNT 319 X10'3 (140-440); RED BLOOD COUNT 3.74 X10'6 (4.20-5.60); RED CELL DISTRIBUTION WIDTH 16.3 % (11.5-14.5); WHITE BLOOD COUNT 21.4 X10'3 (4.5-11.0)
[2022-03-11 11:26] LABS: ALANINE AMINOTRANSFERASE 15 U/L (12-78); ALBUMIN 2.9 G/DL (3.4-5.0); ALBUMIN/GLOBULIN RATIO 0.7 (1.1-1.5); ALKALINE PHOSPHATASE 67 IU/L (46-116); ANION GAP 6 (8-16); ASPARTATE AMINO TRANSFERASE 11 U/L (10-37); BILIRUBIN,TOTAL 0.3 MG/DL (0.1-1.0); BLOOD UREA NITROGEN 75 MG/DL (7-18); BUN/CREATININE RATIO 22.5 (6.6-38.0); CALCIUM 8.3 MG/DL (8.5-10.1); CHLORIDE 96 MMOL/L (99-107); CREATININE 3.33 MG/DL (0.40-0.90); GLUCOSE 160 MG/DL (70-104); POTASSIUM 4.5 MMOL/L (3.5-5.1); SODIUM 140 MMOL/L (135-145); TOTAL CARBON DIOXIDE 38.4 MMOL/L (24-32); TOTAL PROTEIN 7.1 G/DL (6.4-8.2); eGFR 13 ML/MIN
[2022-03-11 15:00] VITALS: BP 143/51
[2022-03-11] MEDS: sodium chloride 0.45% 1,000 ML IV SCH (15:04)
[2022-03-11 18:00] VITALS: BP 128/48
--- NOTE | 2022-03-11 18:53 | NUR ---
patient walked with PT. Clark catheter removed 1700hrs. Will be going to [facility] on sunday. Seen by Dr gaona commenced on IV fluids see EMAR. Son present during afternoon. Labs and chest xray done. patient appears stable report given to Masha BARRIOS
[2022-03-11] MEDS: acetaZOLAMIDE 500mg capsule.SA PO SCH (19:50)
[2022-03-11] MEDS ORDERED: hydrocortisone 1% cream 28gm TP PRN (20:30)
[2022-03-11] MEDS: famotidine/PF 10 mg/ml inj IV SCH (20:30)
[2022-03-11 22:00] VITALS: BP 150/47
[2022-03-12 01:48] LABS: CLARITY,URINE CLEAR (Clear); COLOR,URINE YELLOW (Yellow); GLUCOSE, URINE NEGATIVE (Neg); KETONES,URINE NEGATIVE (Neg); LEUKOCYTE ESTERASE ,URINE NEGATIVE (Neg); NITRITES, URINE NEGATIVE (Neg); OCCULT BLOOD,URINE NEGATIVE (Neg); PROTEIN,URINE NEGATIVE (Neg); UA COLLECTION TYPE CLN CATCH MIDSTREAM; UROBILINOGEN,URINE 0.2 E.U/dL (0.2-1.0)
[2022-03-12 02:00] VITALS: BP 151/53
[2022-03-12] MEDS: sodium chloride 0.45% 1,000 ML IV SCH (03:10)
--- NOTE | 2022-03-12 06:39 | NUR ---
Patient in room PCU 3024. I have received report from Dalia BARRIOS and had the opportunity to ask questions and assume patient care.
[2022-03-12 07:00] VITALS: BP 134/48
[2022-03-12 07:06] LABS: BASOPHILS % (AUTO) 0.1 % (0-1); EOSINOPHILS # (AUTO) 0.2 X10'3 (0-0.9); EOSINOPHILS % (AUTO) 1.1 % (0-6); HEMATOCRIT 31.6 % (35.0-45.0); HEMOGLOBIN 10.2 g/dl (12.0-16.0); LYMPHOCYTES # (AUTO) 0.4 X10'3 (1.1-4.8); LYMPHOCYTES % (AUTO) 1.8 % (21-51); MEAN CORPUSCULAR HEMOGLOBIN 28.7 PG (27.0-31.0); MEAN CORPUSCULAR HGB CONC 32.4 g/dL (33.0-36.5); MEAN CORPUSCULAR VOLUME 88.6 FL (78-98); MEAN PLATELET VOLUME 8.2 FL (7.4-10.4); MONOCYTES # (AUTO) 1.5 X10'3 (0-0.9); MONOCYTES % (AUTO) 7.5 % (2-12); NEUTROPHILS # (AUTO) 18.3 X10'3 (1.8-7.7); NEUTROPHILS % (AUTO) 89.5 % (42-75); PLATELET COUNT 305 X10'3 (140-440); RED BLOOD COUNT 3.57 X10'6 (4.20-5.60); WHITE BLOOD COUNT 20.4 X10'3 (4.5-11.0)
[2022-03-12 07:25] LABS: ALANINE AMINOTRANSFERASE 11 U/L (12-78); ALBUMIN 2.8 G/DL (3.4-5.0); ALBUMIN/GLOBULIN RATIO 0.7 (1.1-1.5); ALKALINE PHOSPHATASE 70 IU/L (46-116); ANION GAP 7 (8-16); ASPARTATE AMINO TRANSFERASE 17 U/L (10-37); BILIRUBIN,TOTAL 0.3 MG/DL (0.1-1.0); BLOOD UREA NITROGEN 79 MG/DL (7-18); BUN/CREATININE RATIO 23.3 (6.6-38.0); CALCIUM 8.8 MG/DL (8.5-10.1); CHLORIDE 96 MMOL/L (99-107); CREATININE 3.39 MG/DL (0.40-0.90); GLUCOSE 137 MG/DL (70-104); POTASSIUM 4.5 MMOL/L (3.5-5.1); SODIUM 139 MMOL/L (135-145); TOTAL CARBON DIOXIDE 36.5 MMOL/L (24-32); TOTAL PROTEIN 6.6 G/DL (6.4-8.2); eGFR 13 ML/MIN
[2022-03-12] MEDS: ipratropium/albuterol 3ml nebule NEB SCH ×4 (07:35→20:27)
[2022-03-12] MEDS: K and/or MAG REPLACEMENT MC SCH ×2 (08:00→20:00)
[2022-03-12] MEDS: [UNRECOGNIZED DRUG - OTHER] PO SCH ×2 (08:00→20:00)
[2022-03-12] MEDS: famotidine/PF 10 mg/ml inj IV SCH (08:00)
[2022-03-12] MEDS ORDERED: furosemide 40mg/4ml inj IV ONE (08:05)
[2022-03-12] MEDS: budesonide 0.5mg/2ml UD nebule IH SCH ×2 (09:00→20:27)
[2022-03-12] MEDS: metoprolol succinate 25mg (24-HOUR) SR. Tablet PO SCH (09:08)
[2022-03-12] MEDS: acetaZOLAMIDE 500mg capsule.SA PO SCH ×2 (09:08→20:43)
[2022-03-12] MEDS: levoTHYROXINE 112mcg tablet PO SCH (09:08)
[2022-03-12] MEDS: cetirizine 10mg tablet PO SCH (09:11)
[2022-03-12] MEDS: predniSONE 20 mg tablet PO SCH (09:11)
[2022-03-12] MEDS: apixaban 2.5mg tablet PO SCH ×2 (09:12→20:43)
[2022-03-12] MEDS: docusate sod 100mg capsule PO SCH ×2 (09:12→20:00)
[2022-03-12] MEDS ORDERED: CefTRIAXone/D5W-Rocephin 1gm 50 ML IV SCH (09:40)
[2022-03-12 10:00] VITALS: BP 122/50
[2022-03-12 11:09] LABS: ABG BASE EXCESS 5.3 mmol/L (-2.0-2.0); ABG HCO3 34.3 mmol/L (22.0-26.0); ABG OXYGEN SATURATION 88.8 % (94-97); ABG PCO2 (T) 77.3 mmHg (32.0-45.0); ABG PO2 (T) 60.7 mmHg (75.0-100.0); ALLEN'S TEST POSITIVE; FCOHb 0.3 % (0.0-3.9); FLOW 2 L/min; FMetHb 0.2 % (0.0-1.5); FO2Hb 88.4 % (94-97); TOTAL HEMOGLOBIN 11.2 G/dl (12.0-16.0)
[2022-03-12] MEDS ORDERED: furosemide 20 MG/2 ML vial IV ONE (14:50)
[2022-03-12] MEDS ORDERED: LIDOcaine 2% 10ml TOPICAL JELLY (Urojet) TP ONE (14:50)
[2022-03-12 15:00] VITALS: BP 129/48
[2022-03-12 15:18] LABS: ABG BASE EXCESS 7.7 mmol/L (-2.0-2.0); ABG HCO3 36.4 mmol/L (22.0-26.0); ABG OXYGEN SATURATION 91.9 % (94-97); ABG PCO2 (T) 76.3 mmHg (32.0-45.0); ABG PO2 (T) 64.3 mmHg (75.0-100.0); ALLEN'S TEST POSITIVE; FCOHb 0.2 % (0.0-3.9); FLOW 40 L/min; FMetHb 0.2 % (0.0-1.5); FO2Hb 91.5 % (94-97); TOTAL HEMOGLOBIN 11.1 G/dl (12.0-16.0)
[2022-03-12] MEDS: morphine 2 MG/ML inj. syringe IV PRN ×3 (15:18→23:16)
--- NOTE | 2022-03-12 15:51 | NUR ---
patient appears very swollen and SOB. seen by Dr gaona . Lasix ordered and kellogg catheter placed back. Rt assessed patient, placed on high flow nasal cannula, unable to tolerate. RT notified again placed on Bipap following morphine IV. will continue to monitor
[2022-03-12 16:39] LABS: ABG BASE EXCESS 6.7 mmol/L (-2.0-2.0); ABG HCO3 35.1 mmol/L (22.0-26.0); ABG OXYGEN SATURATION 93.2 % (94-97); ABG PCO2 (T) 73.5 mmHg (32.0-45.0); ABG PO2 (T) 70.5 mmHg (75.0-100.0); ALLEN'S TEST POSITIVE; FCOHb 0.3 % (0.0-3.9); FMetHb 0.4 % (0.0-1.5); FO2Hb 92.5 % (94-97); TOTAL HEMOGLOBIN 11.1 G/dl (12.0-16.0)
[2022-03-12] MEDS ORDERED: methylPREDNISolone sod succ 125mg/2ml vial IV ONE (16:50)
[2022-03-12] MEDS ORDERED: LORazepam 2 mg/ml vial IV PRN (16:50)
[2022-03-12] MEDS ORDERED: azithromycin/NS 500mg/250ml 250 ML IV ONE (16:50)
[2022-03-12] MEDS ORDERED: vancomycin/NS 1 GM ADD-VANTAGE 250 ML IV PRN (17:05)
[2022-03-12] MEDS ORDERED: vancomycin/NS 1 GM ADD-VANTAGE 250 ML IV ONE (17:11)
[2022-03-12] MEDS: cefepime 2g/NS 100ml ADVANTAGE 100 ML IV SCH (18:02)
[2022-03-12] MEDS: methylPREDNISolone sod succ 125mg/2ml vial IV SCH (18:06)
--- NOTE | 2022-03-12 18:31 | NUR ---
Problems reprioritized. Patient report given, questions answered & plan of care reviewed with gian BARRIOS.
[2022-03-12 18:50] VITALS: BP 130/42
[2022-03-12] MEDS: diphenhydrAMINE 25mg capsule PO PRN (19:01)
[2022-03-12] MEDS ORDERED: furosemide 40mg/4ml inj IV SCH (20:00)
[2022-03-12] MEDS: furosemide 40mg/4ml inj IV SCH (20:43)
[2022-03-12 22:00] VITALS: BP 114/43
[2022-03-13 02:00] VITALS: BP 105/50
[2022-03-13] MEDS: ipratropium/albuterol 3ml nebule NEB SCH ×6 (02:15→23:19)
[2022-03-13] MEDS: methylPREDNISolone sod succ 125mg/2ml vial IV SCH ×4 (02:28→20:35)
[2022-03-13 06:00] VITALS: BP 108/62
--- NOTE | 2022-03-13 06:11 | NUR ---
Problems reprioritized. Patient report given, questions answered & plan of care reviewed with ADRIANA. Addendum: 03/13/22 at 0611 by Demetris Carlson RN Amended: Links added.
[2022-03-13 06:39] LABS: BASOPHILS % (AUTO) 0.1 % (0-1); EOSINOPHILS % (AUTO) 0.2 % (0-6); HEMOGLOBIN 9.2 g/dl (12.0-16.0); LYMPHOCYTES # (AUTO) 0.4 X10'3 (1.1-4.8); LYMPHOCYTES % (AUTO) 3.5 % (21-51); MEAN CORPUSCULAR HEMOGLOBIN 28.3 PG (27.0-31.0); MEAN CORPUSCULAR HGB CONC 31.8 g/dL (33.0-36.5); MEAN PLATELET VOLUME 8.5 FL (7.4-10.4); MONOCYTES # (AUTO) 0.3 X10'3 (0-0.9); MONOCYTES % (AUTO) 2.9 % (2-12); NEUTROPHILS # (AUTO) 9.6 X10'3 (1.8-7.7); NEUTROPHILS % (AUTO) 93.3 % (42-75); PLATELET COUNT 216 X10'3 (140-440); RED BLOOD COUNT 3.26 X10'6 (4.20-5.60); WHITE BLOOD COUNT 10.3 X10'3 (4.5-11.0)
[2022-03-13 07:04] LABS: ALANINE AMINOTRANSFERASE 9 U/L (12-78); ALBUMIN 2.3 G/DL (3.4-5.0); ALBUMIN/GLOBULIN RATIO 0.7 (1.1-1.5); ALKALINE PHOSPHATASE 62 IU/L (46-116); ANION GAP 6 (8-16); ASPARTATE AMINO TRANSFERASE 12 U/L (10-37); BILIRUBIN,TOTAL 0.3 MG/DL (0.1-1.0); BLOOD UREA NITROGEN 86 MG/DL (7-18); BUN/CREATININE RATIO 25.7 (6.6-38.0); CALCIUM 8.1 MG/DL (8.5-10.1); CHLORIDE 100 MMOL/L (99-107); CREATININE 3.35 MG/DL (0.40-0.90); GLUCOSE 125 MG/DL (70-104); POTASSIUM 4.9 MMOL/L (3.5-5.1); SODIUM 142 MMOL/L (135-145); TOTAL CARBON DIOXIDE 35.9 MMOL/L (24-32); TOTAL PROTEIN 5.7 G/DL (6.4-8.2); eGFR 13 ML/MIN
--- NOTE | 2022-03-13 07:32 | NUR ---
Patient in room PCU 3022X. I have received report from SOPHIE RED and had the opportunity to ask questions and assume patient care.
[2022-03-13] MEDS ORDERED: vancomycin/NS 1 GM ADD-VANTAGE 250 ML IV PRN (07:50)
[2022-03-13] MEDS: K and/or MAG REPLACEMENT MC SCH ×2 (08:00→20:00)
[2022-03-13] MEDS ORDERED: pantoprazole 40MG/NS 100ML BAG 100 ML IV SCH (08:00)
[2022-03-13 08:13] LABS: ABG BASE EXCESS 7.2 mmol/L (-2.0-2.0); ABG HCO3 34.5 mmol/L (22.0-26.0); ABG OXYGEN SATURATION 92.7 % (94-97); ABG PO2 (T) 66.3 mmHg (75.0-100.0); ALLEN'S TEST POSITIVE; FCOHb 0.3 % (0.0-3.9); FMetHb 0.2 % (0.0-1.5); FO2Hb 92.2 % (94-97); TOTAL HEMOGLOBIN 10.6 G/dl (12.0-16.0)
[2022-03-13] MEDS: budesonide 0.5mg/2ml UD nebule IH SCH ×2 (08:20→20:29)
[2022-03-13] MEDS: metoprolol succinate 25mg (24-HOUR) SR. Tablet PO SCH (10:02)
[2022-03-13] MEDS: acetaZOLAMIDE 500mg capsule.SA PO SCH ×2 (10:02→20:35)
[2022-03-13] MEDS: apixaban 2.5mg tablet PO SCH ×2 (10:02→20:35)
[2022-03-13] MEDS: levoTHYROXINE 112mcg tablet PO SCH (10:03)
[2022-03-13] MEDS: cetirizine 10mg tablet PO SCH (10:03)
[2022-03-13] MEDS: docusate sod 100mg capsule PO SCH ×2 (10:04→20:36)
[2022-03-13] MEDS: [UNRECOGNIZED DRUG - OTHER] PO SCH ×2 (10:05→20:37)
[2022-03-13] MEDS: furosemide 40mg/4ml inj IV SCH ×2 (10:12→20:35)
[2022-03-13 11:00] VITALS: BP 122/44
[2022-03-13] MEDS: morphine 2 MG/ML inj. syringe IV PRN ×2 (11:06→22:11)
[2022-03-13] MEDS: cefepime 2g/NS 100ml ADVANTAGE 100 ML IV SCH (17:12)
[2022-03-13] MEDS: azithromycin/NS 500mg/250ml 250 ML IV SCH (18:39)
[2022-03-13 18:50] VITALS: BP 109/46
--- NOTE | 2022-03-13 19:32 | NUR ---
Problems reprioritized. Patient report given, questions answered & plan of care reviewed with SOPHIE RED.
[2022-03-13 22:00] VITALS: BP 113/40
[2022-03-14] VITALS (8 sets, daily range): BP systolic 96–110; BP diastolic 30–74
[2022-03-14] MEDS: methylPREDNISolone sod succ 125mg/2ml vial IV SCH ×4 (02:09→21:31)
[2022-03-14] MEDS: diphenhydrAMINE 25mg capsule PO PRN (02:14)
[2022-03-14] MEDS: morphine 2 MG/ML inj. syringe IV PRN (02:15)
--- NOTE | 2022-03-14 02:23 | NUR ---
Offered Benadryl to pt as she is scratching quite a but she refused it. Applied Hydrocortisone cream
[2022-03-14] MEDS: VANCOMYCIN LEVEL IV SCH (03:00)
[2022-03-14] MEDS: ipratropium/albuterol 3ml nebule NEB SCH ×6 (03:20→22:23)
[2022-03-14 06:05] LABS: BASOPHILS % (AUTO) 0.2 % (0-1); EOSINOPHILS % (AUTO) 0 % (0-6); HEMATOCRIT 28.8 % (35.0-45.0); HEMOGLOBIN 9.2 g/dl (12.0-16.0); LYMPHOCYTES # (AUTO) 0.4 X10'3 (1.1-4.8); MEAN CORPUSCULAR HEMOGLOBIN 28.8 PG (27.0-31.0); MEAN CORPUSCULAR VOLUME 90.2 FL (78-98); MEAN PLATELET VOLUME 8.4 FL (7.4-10.4); MONOCYTES # (AUTO) 0.6 X10'3 (0-0.9); NEUTROPHILS # (AUTO) 9.1 X10'3 (1.8-7.7); NEUTROPHILS % (AUTO) 89.8 % (42-75); PLATELET COUNT 225 X10'3 (140-440); RED BLOOD COUNT 3.19 X10'6 (4.20-5.60); RED CELL DISTRIBUTION WIDTH 16.1 % (11.5-14.5); WHITE BLOOD COUNT 10.1 X10'3 (4.5-11.0)
--- NOTE | 2022-03-14 06:34 | NUR ---
Problems reprioritized. Patient report given, questions answered & plan of care reviewed with ADRIANA. Addendum: 03/14/22 at 0635 by Demetris Carlson RN Amended: Links added.
[2022-03-14 06:36] LABS: ALANINE AMINOTRANSFERASE 14 U/L (12-78); ALBUMIN 2.5 G/DL (3.4-5.0); ALBUMIN/GLOBULIN RATIO 0.7 (1.1-1.5); ALKALINE PHOSPHATASE 103 IU/L (46-116); ANION GAP 8 (8-16); ASPARTATE AMINO TRANSFERASE 16 U/L (10-37); BILIRUBIN,TOTAL 0.4 MG/DL (0.1-1.0); BLOOD UREA NITROGEN 97 MG/DL (7-18); BUN/CREATININE RATIO 25.7 (6.6-38.0); CALCIUM 8.1 MG/DL (8.5-10.1); CHLORIDE 99 MMOL/L (99-107); CREATININE 3.77 MG/DL (0.40-0.90); GLUCOSE 152 MG/DL (70-104); POTASSIUM 4.6 MMOL/L (3.5-5.1); SODIUM 141 MMOL/L (135-145); TOTAL CARBON DIOXIDE 34.5 MMOL/L (24-32); VANCOMYCIN,RANDOM 17.7 UG/ML; eGFR 11 ML/MIN
--- NOTE | 2022-03-14 07:14 | NUR ---
Patient in room PCU 3028G. I have received report from SOPHIE RED and had the opportunity to ask questions and assume patient care.
--- NOTE | 2022-03-14 07:29 | NUR ---
Reassessment: Pt continues on MM5/NTL per BRIDGE GANG WORKER recs w/ Heart Healthy and 1.2L fluid restriction w/ poor PO intake, mostly 25-50% of meals not meeting needs. Communicated w/ RN recommendation for nutrition support at this time as pt has inadequate PO intake throughout prior recent admits and does not like ONS. Pt also now on BiPAP. LBM 03/10 receiving routine colace. Will continue to monitor. Recs: 1. Liberalize to Regular/MM5/NTL diet w/ fluids per MD given lipids WNL, 2. Supplemental NGTF given inadequate PO intake throughout prior admits if within POC 3. [place] food preferences: yogurt BIDBD, toast WB, cottage cheese WL, prefers sandwiches and salads; no eggs to eat, milk to drink, or bananas; pt dislikes Ensure 4. Routine bowel care 5. Scaled wts Addendum: 03/14/22 at [address] Amended: Links added.
[2022-03-14] MEDS: budesonide 0.5mg/2ml UD nebule IH SCH ×2 (07:56→19:25)
[2022-03-14] MEDS: K and/or MAG REPLACEMENT MC SCH ×2 (08:00→20:00)
[2022-03-14] MEDS: acetaZOLAMIDE 500mg capsule.SA PO SCH ×2 (08:12→20:00)
[2022-03-14] MEDS: docusate sod 100mg capsule PO SCH ×2 (08:13→20:00)
[2022-03-14] MEDS: metoprolol succinate 25mg (24-HOUR) SR. Tablet PO SCH (08:13)
[2022-03-14] MEDS: apixaban 2.5mg tablet PO SCH ×2 (08:14→20:00)
[2022-03-14] MEDS: levoTHYROXINE 112mcg tablet PO SCH (08:14)
[2022-03-14] MEDS: cetirizine 10mg tablet PO SCH (08:15)
[2022-03-14] MEDS: pantoprazole 40mg Tablet.DR PO SCH (08:15)
[2022-03-14] MEDS: [UNRECOGNIZED DRUG - OTHER] PO SCH ×2 (08:16→20:00)
[2022-03-14] MEDS: furosemide 40mg/4ml inj IV SCH ×2 (08:17→21:30)
[2022-03-14 09:39] LABS: ABG BASE EXCESS 1.6 mmol/L (-2.0-2.0); ABG HCO3 28.1 mmol/L (22.0-26.0); ABG OXYGEN SATURATION 98.1 % (94-97); ABG PCO2 (T) 53.6 mmHg (32.0-45.0); ABG PO2 (T) 117.5 mmHg (75.0-100.0); ALLEN'S TEST POSITIVE; FCOHb 0.3 % (0.0-3.9); FLOW 4 L/min; FMetHb 0.2 % (0.0-1.5); FO2Hb 97.6 % (94-97); TOTAL HEMOGLOBIN 10.6 G/dl (12.0-16.0)
[2022-03-14] MEDS ORDERED: diphenhydrAMINE 50 mg/ml inj IV PRN (11:50)
[2022-03-14] MEDS: cefepime 2g/NS 100ml ADVANTAGE 100 ML IV SCH (17:07)
[2022-03-14] MEDS: azithromycin/NS 500mg/250ml 250 ML IV SCH (17:46)
--- NOTE | 2022-03-14 18:37 | NUR ---
Problems reprioritized. Patient report given, questions answered & plan of care reviewed with BUTCH RN.
[2022-03-15 02:00] VITALS: BP 107/34
[2022-03-15] MEDS: methylPREDNISolone sod succ 125mg/2ml vial IV SCH ×4 (02:28→20:36)
[2022-03-15] MEDS: ipratropium/albuterol 3ml nebule NEB SCH ×6 (02:58→23:17)
[2022-03-15] MEDS: VANCOMYCIN LEVEL IV SCH (03:00)
[2022-03-15 06:00] VITALS: BP 101/39
[2022-03-15 06:19] LABS: BASOPHILS % (AUTO) 0.3 % (0-1); EOSINOPHILS % (AUTO) 0 % (0-6); HEMATOCRIT 29.9 % (35.0-45.0); HEMOGLOBIN 9.6 g/dl (12.0-16.0); LYMPHOCYTES # (AUTO) 0.5 X10'3 (1.1-4.8); LYMPHOCYTES % (AUTO) 4.5 % (21-51); MEAN CORPUSCULAR VOLUME 90.6 FL (78-98); MEAN PLATELET VOLUME 8.6 FL (7.4-10.4); MONOCYTES # (AUTO) 0.8 X10'3 (0-0.9); MONOCYTES % (AUTO) 7.6 % (2-12); NEUTROPHILS # (AUTO) 9.5 X10'3 (1.8-7.7); NEUTROPHILS % (AUTO) 87.6 % (42-75); PLATELET COUNT 200 X10'3 (140-440); RED BLOOD COUNT 3.29 X10'6 (4.20-5.60); RED CELL DISTRIBUTION WIDTH 16.3 % (11.5-14.5); WHITE BLOOD COUNT 10.9 X10'3 (4.5-11.0)
--- NOTE | 2022-03-15 06:34 | NUR ---
Patient in room PCU 3024A. I have received report from SOPHIE RAE and had the opportunity to ask questions and assume patient care.
[2022-03-15 06:51] LABS: ALANINE AMINOTRANSFERASE 95 U/L (12-78); ALBUMIN 2.5 G/DL (3.4-5.0); ALBUMIN/GLOBULIN RATIO 0.7 (1.1-1.5); ALKALINE PHOSPHATASE 118 IU/L (46-116); ANION GAP 10 (8-16); ASPARTATE AMINO TRANSFERASE 137 U/L (10-37); BILIRUBIN,TOTAL 0.4 MG/DL (0.1-1.0); BLOOD UREA NITROGEN 112 MG/DL (7-18); BUN/CREATININE RATIO 26.2 (6.6-38.0); CALCIUM 7.9 MG/DL (8.5-10.1); CHLORIDE 100 MMOL/L (99-107); CREATININE 4.27 MG/DL (0.40-0.90); GLUCOSE 143 MG/DL (70-104); SODIUM 142 MMOL/L (135-145); TOTAL CARBON DIOXIDE 32.1 MMOL/L (24-32); VANCOMYCIN,RANDOM 17.3 UG/ML; eGFR 10 ML/MIN
[2022-03-15] MEDS: pantoprazole 40mg Tablet.DR PO SCH (07:30)
[2022-03-15] MEDS: budesonide 0.5mg/2ml UD nebule IH SCH ×2 (07:52→20:52)
--- NOTE | 2022-03-15 07:59 | NUR ---
Pt found on bipap settings 14/5 backup rate 10, taken off bipap neb tx given with mask, pt awake does not follow commands, only response is "fine", does not answer to time or place, not tracking with eyes, concerns relayed to RN. Page notification sent to . PT remains on 2lpm NC at this time due to change in mental status pt unable to remove bipap mask at this time. concerns paged to . Addendum: 03/15/22 at 0802 by Maricruz Noland RT Amended: Links added.
[2022-03-15] MEDS: K and/or MAG REPLACEMENT MC SCH ×2 (08:00→18:45)
[2022-03-15] MEDS: cetirizine 10mg tablet PO SCH (08:00)
[2022-03-15] MEDS: acetaZOLAMIDE 500mg capsule.SA PO SCH ×2 (08:00→19:32)
[2022-03-15] MEDS: apixaban 2.5mg tablet PO SCH ×2 (08:00→19:32)
[2022-03-15] MEDS: levoTHYROXINE 112mcg tablet PO SCH (08:00)
[2022-03-15] MEDS: docusate sod 100mg capsule PO SCH ×2 (08:00→19:32)
[2022-03-15] MEDS: multivitamins, therapeutics tablet PO SCH (08:00)
[2022-03-15] MEDS: [UNRECOGNIZED DRUG - OTHER] PO SCH ×2 (08:00→19:32)
[2022-03-15] MEDS: metoprolol succinate 25mg (24-HOUR) SR. Tablet PO SCH (08:00)
[2022-03-15] MEDS ORDERED: normal saline 1000ml 1,000 ML IV SCH (10:25)
[2022-03-15 11:00] VITALS: BP 94/43
[2022-03-15 11:40] LABS: ABG BASE EXCESS 3.8 mmol/L (-2.0-2.0); ABG HCO3 30.9 mmol/L (22.0-26.0); ABG OXYGEN SATURATION 97.9 % (94-97); ABG PO2 (T) 125.6 mmHg (75.0-100.0); ALLEN'S TEST POSITIVE; FCOHb 0.3 % (0.0-3.9); FLOW 2 L/min; FMetHb 0.1 % (0.0-1.5); FO2Hb 97.5 % (94-97); TOTAL HEMOGLOBIN 10.4 G/dl (12.0-16.0)
--- NOTE | 2022-03-15 12:23 | NUR ---
Post abg and CT scan pt returned to BIPAP 21% Fio2, SOPHIE pitt, PT son at bedside with MD discussing plan of care. PT remains on bipap at this time. Addendum: 03/15/22 at 1224 by Maricruz Noland RT Amended: Links added.
[2022-03-15] MEDS ORDERED: LORazepam 0.5 MG tablet PO PRN (14:55)
[2022-03-15 15:00] VITALS: BP 101/47
[2022-03-15] MEDS ORDERED: CEFEPIME IV SCH (17:00)
[2022-03-15] MEDS ORDERED: NORMAL SALINE IV SCH (17:00)
[2022-03-15 18:00] VITALS: BP 101/47
--- NOTE | 2022-03-15 18:30 | NUR ---
Patient in room PCU 3024. I have received report from harjit and had the opportunity to ask questions and assume patient care.
[2022-03-15] MEDS: azithromycin/NS 500mg/250ml 250 ML IV SCH (18:58)
--- NOTE | 2022-03-15 19:52 | NUR ---
Problems reprioritized. Patient report given, questions answered & plan of care reviewed with ERA PUGH.
[2022-03-15] MEDS: albumin (human) 25% 100ml IV 100 ML IV SCH (20:39)
[2022-03-16] MEDS: methylPREDNISolone sod succ 125mg/2ml vial IV SCH ×3 (02:03→14:00)
[2022-03-16] MEDS: VANCOMYCIN LEVEL IV SCH (03:00)
[2022-03-16] MEDS: ipratropium/albuterol 3ml nebule NEB SCH ×3 (03:08→12:00)
[2022-03-16 04:59] VITALS: BP 101/35
[2022-03-16 06:00] VITALS: BP 111/29
--- NOTE | 2022-03-16 06:00 | NUR ---
REVIEWED DATA TYPIST ASSESSMENT AND IN AGREEMENT.
[2022-03-16 06:24] LABS: BASOPHILS % (AUTO) 0.3 % (0-1); EOSINOPHILS % (AUTO) 0 % (0-6); HEMATOCRIT 28.8 % (35.0-45.0); HEMOGLOBIN 9.2 g/dl (12.0-16.0); LYMPHOCYTES # (AUTO) 0.3 X10'3 (1.1-4.8); LYMPHOCYTES % (AUTO) 3.2 % (21-51); MEAN CORPUSCULAR HEMOGLOBIN 28.6 PG (27.0-31.0); MEAN CORPUSCULAR HGB CONC 31.8 g/dL (33.0-36.5); MEAN CORPUSCULAR VOLUME 89.9 FL (78-98); MEAN PLATELET VOLUME 8.6 FL (7.4-10.4); MONOCYTES # (AUTO) 0.5 X10'3 (0-0.9); MONOCYTES % (AUTO) 4.9 % (2-12); NEUTROPHILS # (AUTO) 8.6 X10'3 (1.8-7.7); NEUTROPHILS % (AUTO) 91.6 % (42-75); PLATELET COUNT 186 X10'3 (140-440); RED CELL DISTRIBUTION WIDTH 16.1 % (11.5-14.5); WHITE BLOOD COUNT 9.4 X10'3 (4.5-11.0)
--- NOTE | 2022-03-16 06:41 | NUR ---
Problems reprioritized. Patient report given, questions answered & plan of care reviewed with
[2022-03-16 06:47] LABS: ALANINE AMINOTRANSFERASE 61 U/L (12-78); ALBUMIN 2.8 G/DL (3.4-5.0); ALBUMIN/GLOBULIN RATIO 0.9 (1.1-1.5); ALKALINE PHOSPHATASE 115 IU/L (46-116); ANION GAP 12 (8-16); ASPARTATE AMINO TRANSFERASE 45 U/L (10-37); BILIRUBIN,TOTAL 0.4 MG/DL (0.1-1.0); BLOOD UREA NITROGEN 137 MG/DL (7-18); BUN/CREATININE RATIO 29.7 (6.6-38.0); CALCIUM 7.8 MG/DL (8.5-10.1); CHLORIDE 100 MMOL/L (99-107); CREATININE 4.62 MG/DL (0.40-0.90); GLUCOSE 161 MG/DL (70-104); POTASSIUM 5.3 MMOL/L (3.5-5.1); SODIUM 142 MMOL/L (135-145); VANCOMYCIN,RANDOM 15.5 UG/ML; eGFR 9 ML/MIN
[2022-03-16] MEDS: pantoprazole 40mg Tablet.DR PO SCH (07:30)
[2022-03-16] MEDS ORDERED: furosemide 40mg/4ml inj IV SCH (08:00)
[2022-03-16] MEDS: levoTHYROXINE 112mcg tablet PO SCH (08:00)
[2022-03-16] MEDS: multivitamins, therapeutics tablet PO SCH (08:00)
[2022-03-16] MEDS: acetaZOLAMIDE 500mg capsule.SA PO SCH (08:00)
[2022-03-16] MEDS: cetirizine 10mg tablet PO SCH (08:00)
[2022-03-16] MEDS: metoprolol succinate 25mg (24-HOUR) SR. Tablet PO SCH (08:00)
[2022-03-16] MEDS: docusate sod 100mg capsule PO SCH (08:00)
[2022-03-16] MEDS: apixaban 2.5mg tablet PO SCH (08:00)
[2022-03-16] MEDS: [UNRECOGNIZED DRUG - OTHER] PO SCH (08:00)
[2022-03-16] MEDS: K and/or MAG REPLACEMENT MC SCH (08:00)
[2022-03-16] MEDS: budesonide 0.5mg/2ml UD nebule IH SCH (08:28)
[2022-03-16 08:36] VITALS: BP 128/57
--- NOTE | 2022-03-16 08:42 | NUR ---
HOSPITALIST ROUNDING ON FLOOR. AWARE PT. UNABLE TO SWALLOW PO MEDICATIONS. AWARE OF ST EVAL AND THAT PT. EATING VERY LITTLE OF PUREED DIET. PT MAY NEED SOME OTHER FORM OF NUTRITION LATER- NO ORDERS AT THIS TIME. DISCUSSED HYPOTENSION WITH , PT. CURRENTLY STABLE. MD DODIE SOUTH LASGENIE, HOLD LOPRESSOR.
[2022-03-16] MEDS: albumin (human) 25% 100ml IV 100 ML IV SCH (08:52)
[2022-03-16 11:00] VITALS: BP 100/12
[2022-03-16] MEDS ORDERED: LORazepam 2 mg/ml vial IV PRN (12:45)
[2022-03-16] MEDS ORDERED: morphine 10mg/ml inj. IV PRN (12:45)
[2022-03-16] MEDS: morphine 2 MG/ML inj. syringe IV PRN ×2 (15:41→21:41)
[2022-03-16] MEDS ORDERED: azithromycin 250mg tablet PO SCH (17:50)
--- NOTE | 2022-03-16 18:22 | NUR ---
Gave report to Jared GIRARD.
--- NOTE | 2022-03-16 18:30 | NUR ---
Patient in room PCU 3024. I have received report from satartia and had the opportunity to ask questions and assume patient care.
[2022-03-17] MEDS: morphine 2 MG/ML inj. syringe IV PRN ×3 (04:26→17:22)
--- NOTE | 2022-03-17 06:00 | NUR ---
Agree with VENEER MARKER assessment.
--- NOTE | 2022-03-17 06:29 | NUR ---
Problems reprioritized. Patient report given, questions answered & plan of care reviewed with
--- NOTE | 2022-03-17 06:33 | NUR ---
Patient in room PCU 3020. I have received report from Jared GIRARD and had the opportunity to ask questions and assume patient care.
--- NOTE | 2022-03-17 08:45 | NUR ---
Reassessment: Noted pt with a low Marlon of 11, no wounds per EMR. Pt s/p f/u BSS 03/[address] recs downgrade to pureed food with nectar thick liquids. Overall pt continues eating poorly, not meeting estimated nutrient needs. No nutrition intervention to be implemented as patient's code status now is DNR with comfort care. LBM 03/10. Bowel care meds discontinued however had not been admin for several days prior d/t patient's inability to swallow per EMR. No appropriate nutrition intervention for constipation given NPO status. Will continue to follow per LOS. Recommendations: 1. Bowel care per comfort care measures Addendum: 03/17/22 at [address] Amended: Links added.
--- NOTE | 2022-03-17 17:45 | NUR ---
All cares given to patient medicated as per EMAR. family present in shifts. . Report given to Jared GIRARD
--- NOTE | 2022-03-17 18:59 | NUR ---
PAGER ID: [phone] MESSAGE: [id number] areli fine. passed at 1845 2 rn verify lynne riley bed spring maker [id number]
--- NOTE | 2022-03-17 19:12 | NUR ---
PT PRONOUNCED AT 18:46 PER TELEMETRY READOUT. PTS PUPILS ARE FIXED AND DILATED, UNABLE TO AUSCULTATE A B/P OR PULSE. PTS SON PRESENT AT TIME OF , REQUEST [facility] HOME. WAS UNABLE TO REACH DR WETZEL SO DR BARRY WAS NOTIFIED OF PATIENTS AND AN ORDER WAS RCVD FOR NURSE TO PRONOUNCE. POST-MORTEM CARE BEING GIVEN BY KEATON DIAZ LVN.
== END 2022-03-17 18:46 | DRG 291 ==
LOC: ER 13:14 → ED HOLD 16:02 → PCU 3S 20:30
PROVIDERS: ADMIT Family Medicine; ATTEND Family Medicine
PROC: 30233N1 Transfusion of Nonautologous Red Blood Cells into Peripheral Vein, Percutaneous Approach (ICD-10-PCS; 2022-03-05)
PROC: 0W9B3ZX Drainage of Left Pleural Cavity, Percutaneous Approach, Diagnostic (ICD-10-PCS; 2022-03-06)
PROC: 5A0935A Assistance with Respiratory Ventilation, Less than 24 Consecutive Hours, High Flow/Velocity Cannula (ICD-10-PCS; principal; 2022-03-12)
PROC: 5A09357 Assistance with Respiratory Ventilation, Less than 24 Consecutive Hours, Continuous Positive Airway Pressure (ICD-10-PCS; 2022-03-12)
PROC: 5A0935A Assistance with Respiratory Ventilation, Less than 24 Consecutive Hours, High Flow/Velocity Cannula (ICD-10-PCS; 2022-03-13)
PROC: 5A09357 Assistance with Respiratory Ventilation, Less than 24 Consecutive Hours, Continuous Positive Airway Pressure (ICD-10-PCS; 2022-03-13)
PROC: 5A09357 Assistance with Respiratory Ventilation, Less than 24 Consecutive Hours, Continuous Positive Airway Pressure (ICD-10-PCS; 2022-03-14)
PROC: 5A09357 Assistance with Respiratory Ventilation, Less than 24 Consecutive Hours, Continuous Positive Airway Pressure (ICD-10-PCS; 2022-03-15)
DX: I13.0 Hypertensive heart and chronic kidney disease with heart failure and stage 1 through stage 4 chronic kidney disease, or unspecified chronic kidney disease (principal); I50.33 Acute on chronic diastolic (congestive) heart failure; J96.01 Acute respiratory failure with hypoxia; N17.0 Acute kidney failure with tubular necrosis; J18.9 Pneumonia, unspecified organism; J96.02 Acute respiratory failure with hypercapnia; I47.1 Supraventricular tachycardia; E87.2 Acidosis; J91.8 Pleural effusion in other conditions classified elsewhere; I48.92 Unspecified atrial flutter; J45.909 Unspecified asthma, uncomplicated; E78.5 Hyperlipidemia, unspecified; I35.0 Nonrheumatic aortic (valve) stenosis; D64.9 Anemia, unspecified; E89.0 Postprocedural hypothyroidism; Z20.822 Contact with and (suspected) exposure to COVID-19; I07.1 Rheumatic tricuspid insufficiency; N18.30 Chronic kidney disease, stage 3 unspecified; R21 Rash and other nonspecific skin eruption; I27.81 Cor pulmonale (chronic); I27.20 Pulmonary hypertension, unspecified; Z66 Do not resuscitate; Z53.20 Procedure and treatment not carried out because of patient's decision for unspecified reasons; E78.00 Pure hypercholesterolemia, unspecified; I48.0 Paroxysmal atrial fibrillation; T38.0X5A Adverse effect of glucocorticoids and synthetic analogues, initial encounter; Z51.5 Encounter for palliative care; Z85.850 Personal history of malignant neoplasm of thyroid; Z90.710 Acquired absence of both cervix and uterus; Z87.440 Personal history of urinary (tract) infections; Z90.49 Acquired absence of other specified parts of digestive tract; Z79.899 Other long term (current) drug therapy; Z82.49 Family history of ischemic heart disease and other diseases of the circulatory system; R11.2 Nausea with vomiting, unspecified; T46.0X5A Adverse effect of cardiac-stimulant glycosides and drugs of similar action, initial encounter; Y92.230 Patient room in hospital as the place of occurrence of the external cause; L27.0 Generalized skin eruption due to drugs and medicaments taken internally
CPT/HCPCS: 32555; 36415; 36430; 36600; 70450; 71045; 71250; 80053; 80061; 80162; 80202; 81003; 82550; 82803; 82945; 83540; 83550; 83605; 83615; 83690; 83735; 83880; 83986; 84100; 84145; 84157; 84484; 85007; 85018; 85025; 85610; 85730; 86885; 86900; 86901; 86920; 87070; 87081; 89051; 92508; 92616; 93005; 94640; 94660; 94760; 96374; 96375; 97110; 97116; 97161; 97530; 99285; A4314; A4615; A6213; A6258; A6402; A6449; C1729; C9113; G0378; J0282; J0456; J0692; J0696; J0780; J1160; J1162; J1940; J2060; J2270; J2405; J2543; J2930; J3370; J3490; J7030; J7040; J7050; J7512; P9016; P9045; P9047; Q0163